=== PATIENT | male | born 1960 | race Caucasian/White ===

== ENCOUNTER 2016-10-25 20:27 | Inpatient (IN) | payer OTHER ==
[2016-10-25 21:02] LABS: URINE SOURCE CLEAN CATCH
[2016-10-25 21:22] LABS: BILIRUBIN URINE NEGATIVE (NEGATIVE); BLOOD URINE 4+ (NEGATIVE); CLARITY VERY CLOUDY (CLEAR); COLOR AMBER; LEUKOCYTES URINE 2+ (NEGATIVE); NITRITE URINE POSITIVE (NEGATIVE); PROTEIN URINE 2+(100 mg/dL) mg/dL (NEGATIVE); UROBILINOGEN URINE 4+(12 mg/dL)
[2016-10-25 21:23] LABS: URINE CAST NONE SEEN /LPF; URINE CRYSTAL NONE SEEN /HPF; URINE CULTURE PL NEEDED? YES; URINE EPITHELIAL CELLS <10 /HPF (<10); URINE RBC TNTC /HPF (<10); URINE WBC TNTC /HPF (<10)
[2016-10-25] MEDS ORDERED: NS 1,000 ML IV ONE (21:53)
[2016-10-25] MEDS ORDERED: ROCEPHIN 1 GM/NS 50 ML IV ONE (21:53)
[2016-10-25] MEDS ORDERED: TYLENOL PO ONE (21:53)
[2016-10-25] MEDS ORDERED: MORPHINE IV ONE (22:07)
--- NOTE | 2016-10-25 22:17 | PROVIDER DOCUMENTATION ---
HPI-Male Problem - General Chief Complaint: Flank Pain Stated Complaint: MALE Time Seen by Provider: 10/25/16 21:52 Source: patient Allergies/Adverse Reactions: Patient Allergies Allergy/AdvReac Type Severity Reaction Status Date / Time No Known Allergies Allergy Verified 07/09/16 16:43 Home Medications: Home Medication List Medication Instructions Recorded Confirmed Last Taken Type Clopidogrel Bisulfate [Clopidogrel] 75 mg PO DAILY 10/25/16 10/25/16 Unknown History Glimepiride 4 mg PO QAM 10/25/16 10/25/16 Unknown History Losartan Potassium 100 mg PO DAILY 10/25/16 10/25/16 Unknown History Metformin HCl 1,000 mg PO BID 10/25/16 10/25/16 Unknown History Pregabalin [Lyrica] 50 mg PO HS 10/25/16 10/25/16 Unknown History - History of Present Illness-Male Nature of Presenting Problem: 56 Y/O F presents to ED with Flank Pain. Pt states that the pain began yesterday , he was loading up a car ramp. States pain began about 1-2 hrs after. Back pain with radiation to left side groin pain. Pt has N, Low grade fever, States urine is a darker color than before. Denies V/D, Dysuria, hematuria. Location of Complaint: reports: generalized flank Radiation: reports: groin Quality of Pain: reports: aching Severity in ED: reports: severe Onset/Duration: reports: 24 hours ago Timing: reports: still present Context/Activities at Onset: reports: none Urinary Symptoms: reports: no symptoms Associated Symptoms: reports: pain/swelling in testicle Associated Symptoms: reports: back/neck pain Review of Systems - Adult - REVIEW OF SYSTEMS - ADULT Constitutional: reports: fever. denies: chills Eyes: reports: no symptoms reported Ears, Nose, Mouth & Throat: reports: no symptoms reported Cardiovascular: reports: no symptoms reported Respiratory: reports: no symptoms reported Gastrointestinal: reports: nausea. denies: diarrhea, vomiting Genitourinary: reports: flank pain, other (testicular tenderness). denies: dysuria, discharge, frequency, hematuria, urinary retention, urgency Musculoskeletal: reports: back pain Integumentary: denies: hives, hair loss Neurological: denies: ataxia, headache/migraines Psychiatric: reports: no symptoms reported Endocrine: reports: no symptoms reported Hematologic/Lymphatic: reports: no symptoms reported Allergic/Immunologic: reports: no symptoms reported All Other Systems: Reviewed and Negative Past History - Adult - PAST MEDICAL HISTORY-ADULT Review of Records: reports: Old Records Reviewed, Nursing Assessment Review, Medications Reviewed, Social history reviewed & non-contributory. Major Childhood Illnesses: reports: denies history Cardiovascular: reports: HTN, OR Musculoskeletal: reports: chronic pain Endocrine/Immune: reports: Diabetes - PRIOR SURGERIES/PROCEDURES Surgical/Procedure History: reports: appendectomy, cardiac stent - IMMUNIZATION STATUS Childhood Immunizations: See Nurse Assessment Flu Vaccine: See Nurse Assessment - FAMILY HISTORY Family History: reviewed, not pertinent - SOCIAL HISTORY Smoking: cigarettes, greater than 1 pack/day Living Situation: family Physical Exam-General - PHYSICAL EXAM-ADULT Initial Vital Signs Reviewed: Yes - CONSTITUTIONAL General Appearance: appears well, alert, mild distress - EYES Eyes: PERRL/EOMI, pink conjunctivae, fundi clear, no AV nicking - HEAD, EARS, NOSE, MOUTH & THROAT HENMT: normocephalic/atraumatic, moist mucous membranes, normal ENT inspection, TMs normal, pharynx normal - NECK Neck: non-tender, full range of motion, supple, normal inspection - RESPIRATORY Respiratory: chest non-tender, lungs clear, normal breath sounds, no pleuratic chest pain, no respiratory distress - CARDIOVASCULAR Cardiovascular: normal peripheral pulses, regular rate, rhythm - GASTROINTESTINAL (ABDOMEN) Abdominal Exam: normal bowel sounds, non tender, soft - GENITOURINARY Male Genitalia: testicular tenderness (swollen moderately) - LYMPHATIC Lymphatic: no adenopathy - MUSCULOSKELETAL Back Exam: normal inspection, no CVA tenderness, no vertebral tenderness Extremity: normal range of motion, non-tender, normal gait - SKIN Integumentary: normal color, normal turgor, warm/dry - NEUROLOGIC 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 - PSYCHIATRIC Psych/Mental Status: normal mood/affect, normal thought content, normal thought process, oriented x 3 Progress - PLAN OF CARE/RESULTS Progress/Plan/Lab Results: Laboratory Tests 10/25/16 10/25/16 10/25/16 20:55 22:17 22:17 WBC 17.58 H RBC 4.67 L Hgb 13.4 L Hct 42.1 MCV 90.1 MCH 28.7 MCHC 31.8 L RDW Std Deviation 14.6 H Plt Count 261 MPV 11.1 H Immature Gran % (Auto) 0.3 Neut % (Auto) 70.1 Lymph % (Auto) 18.9 L Jones % (Auto) 9.9 H Eos % (Auto) 0.4 Baso % (Auto) 0.4 Immature Gran # (Auto) 0.06 H Neut # (Auto) 12.31 H Lymph # (Auto) 3.33 Jones # (Auto) 1.74 H Eos # (Auto) 0.07 Baso # (Auto) 0.07 Sodium 131 L Potassium 4.2 Chloride 95 L Carbon Dioxide 25 Anion Gap 11 BUN 9 Creatinine 0.9 Estimated GFR/1.73 m2 > 60 BUN/Creatinine Ratio 10 Glucose 249 H Calculated Osmolality 270 Calcium 9.4 Total Bilirubin 1.80 H AST 27 ALT 33 Alkaline Phosphatase 115 Total Protein 8.2 Albumin 4.1 Globulin 4.0 Albumin/Globulin Ratio 1.0 Urine Source CLEAN CATCH Urine Color GIANNA Urine Clarity VERY CLOUDY A Urine pH 5.0 Ur Specific Raymond 1.020 Urine Protein 2+(100 mg/dL) A Urine Ketones TRACE Urine Blood 4+ Urine Nitrite POSITIVE A Urine Bilirubin NEGATIVE Urine Urobilinogen 4+(12 mg/dL) Urine Microscopic RBC TNTC A Urine WBC 2+ A Urine Microscopic WBC TNTC A Ur Epithelial Cells <10 Urine Crystals NONE SEEN Urine Bacteria 1+ Urine Casts NONE SEEN Urine Yeast NONE SEEN Urine Glucose 3+(500 mg/dL) A Orders Category Date Time Status RENAL STONE SEARCH [CT] Stat Exams 10/25/16 21:25 Taken US SCROTUM [US] Stat Exams 10/25/16 22:08 Taken BLOOD CULTURE [BLDCUL] Stat Lab 10/25/16 22:07 Ordered CBC WITH ELECTRONIC DIFF [HEME] Stat Lab 10/25/16 22:17 Completed CMP [COMPREHENSIVE METABOLIC PANEL] [CHEM] Stat Lab 10/25/16 22:[address] W/POSS RFLX CULT [URINALYSIS] Stat Lab 10/25/16 20:55 Completed URINE CULTURE [RM] Routine Lab 10/25/16 21:24 Received 0.9% Sodium Chloride Inj [Ns] 1,000 ml Med 10/25/16 21:53 Discontinued IV 999 mls/hr Acetaminophen [Tylenol] Med 10/25/16 21:53 Discontinued 1,000 mg PO NOW ONE CefTRIAXONE 1 GM/NS [Rocephin 1 gm/Ns] 50 ml Med 10/25/16 21:53 Discontinued IV NOW Diphenhydramine [Benadryl] Med 10/25/16 22:41 Discontinued 25 mg IV NOW ONE Morphine Med 10/25/16 22:07 Discontinued 4 mg IV NOW ONE Vital Signs - 24 hr 10/25/16 20:47 Temperature 100.5 F H Pulse Rate 115 H Respiratory 18 Rate Blood Pressure 144/80 O2 Sat by Pulse 94 L Oximetry - CT/MRI 1 CT Study: Renal Stone Impression: Abnormal (no stones, modeerate L renal and ureteral edema suggesting recently passed stone or ascending UTI. severe fatty liver, urinary bladder cystitis or chronic bladder hypertension.) CT Results: see notes - ULTRASOUND (By Radiology) 1 US Study: Scrotum Impression: Abnormal (Normal bilateral color doppler flow in both testes. Small bilateral hydrocelex, greater on the left. Asmmetrically enlarged, heterogeneous and hyperemic left epididymis. The right epididimysis appears grossly normal.) - CONSULTS/PCP/HOSPITALIST Notification #1 *Consult/PCP/Hospitalist*: Dr. Neves Time Discussed: 00:25 Reason/Comments: Admit Consult Disposition: Admit (Admit Accepted) Departure - Departure Time of Disposition Order: 00:25 DIAGNOSIS: Left epididymitis, Pyelonephritis Disposition: ADMITTED INPATIENT 09 Certified Medical Emergency: Emergent Condition: Stable Referrals: None,PCP [Primary Care Provider] - Attestation - Scribe Verification/Attestation Scribe:: Gayatri Galindo Acting as Scribe for:: Edd Curtis Scribe documention review:: This chart was documented by a scribe and accurately reflects the service the provider performed and the decisions made by the provider.
[2016-10-25 22:27] LABS: MANUAL DIFF NEEDED? NO
[2016-10-25 22:29] LABS: BASO% 0.4 % (0.0-0.8); EOS# 0.07 X1000 (0.0-0.7); EOS% 0.4 % (0.0-10.0); HEMATOCRIT 42.1 % (42.0-52.0); HEMOGLOBIN 13.4 g/dL (14.0-18.0); IMM GRAN# 0.06 X1000 (0.0-0.04); IMM GRAN% 0.3 % (0.0-0.5); LYMPH# 3.33 X1000 (1.2-3.4); LYMPH% 18.9 % (20.5-51.1); MCH 28.7 PG (27-31); MCHC 31.8 g/dL (33-37); MCV 90.1 FL (81-99); MONO# 1.74 X1000 (0.11-0.59); MONO% 9.9 % (1.7-9.3); MPV 11.1 FL (7.4-10.4); NEUT% 70.1 % (42.2-75.2); PLT 261 X1000 (130-400); RBC 4.67 XMIL (4.7-6.1)
[2016-10-25] MEDS ORDERED: BENADRYL IV ONE (22:41)
[2016-10-25 22:55] LABS: AGAP 11; ALBUMIN 4.1 g/dL (3.5-5.0); ALKALINE PHOSPHATASE 115 U/L (32-122); BUN 9 mg/dL (8-22); CALCIUM 9.4 mg/dL (8.8-10.2); CHLORIDE 95 mmol/L (98-107); COSMO 270; GOT 27 U/L (10-34); GPT 33 U/L (10-44); POTASSIUM 4.2 mmol/L (3.5-5.1); SODIUM 131 mmol/L (136-145); TCO2 25 mmol/L (25-35); TOTAL PROTEIN 8.2 g/dL (6.3-8.3)
[2016-10-26] MEDS ORDERED: ZOFRAN IV PRN (00:29)
[2016-10-26] MEDS: NS 1,000 ML IV SCH ×3 (00:30→22:49)
[2016-10-26] MEDS ORDERED: TYLENOL PO PRN (00:32)
[2016-10-26] MEDS: MORPHINE IV PRN ×3 (00:44→14:38)
[2016-10-26 04:45] LABS: MANUAL DIFF NEEDED? NO
[2016-10-26 04:51] LABS: BASO% 0.5 % (0.0-0.8); EOS# 0.12 X1000 (0.0-0.7); EOS% 0.9 % (0.0-10.0); HEMATOCRIT 39.2 % (42.0-52.0); HEMOGLOBIN 12.3 g/dL (14.0-18.0); IMM GRAN# 0.04 X1000 (0.0-0.04); IMM GRAN% 0.3 % (0.0-0.5); LYMPH# 3.15 X1000 (1.2-3.4); LYMPH% 23.1 % (20.5-51.1); MCHC 31.4 g/dL (33-37); MCV 92.5 FL (81-99); MONO# 1.64 X1000 (0.11-0.59); MPV 10.5 FL (7.4-10.4); NEUT% 63.2 % (42.2-75.2); PLT 210 X1000 (130-400); RBC 4.24 XMIL (4.7-6.1)
[2016-10-26 05:16] LABS: AGAP 10; ALBUMIN 3.1 g/dL (3.5-5.0); ALKALINE PHOSPHATASE 93 U/L (32-122); BUN 8 mg/dL (8-22); CALCIUM 8.5 mg/dL (8.8-10.2); CHLORIDE 98 mmol/L (98-107); COSMO 267; GOT 17 U/L (10-34); GPT 25 U/L (10-44); POTASSIUM 3.7 mmol/L (3.5-5.1); SODIUM 133 mmol/L (136-145); TCO2 25 mmol/L (25-35); TOTAL PROTEIN 6.8 g/dL (6.3-8.3)
[2016-10-26] MEDS ORDERED: MORPHINE ONE (05:47)
[2016-10-26] MEDS ORDERED: METFORMIN HCL 1000 MG PO SCH (09:00)
[2016-10-26] MEDS ORDERED: AMARYL PO SCH ×2 (09:00)
[2016-10-26] MEDS ORDERED: PLAVIX PO SCH (09:00)
[2016-10-26] MEDS ORDERED: LOSARTAN POTASSIUM 100 MG PO SCH (09:00)
--- NOTE | 2016-10-26 09:35 | Diag Imaging Result Document ---
PROCEDURE NAME: RENAL STONE SEARCH - 10/25/2016 CT RENAL STONE SEARCH WITHOUT CONTRAST: A dose-reduction protocol was used. COMPARISON: 07/10/2016. FINDINGS: There is residual or recurrent mild perinephric and periureteral edema on the left. There is no other substantial hydronephrosis identified. The left edema may relate to residual or recurrent left pyelonephritis. A recently passed stone from the left is also a consideration. There is no renal stone identified. There is apparent mild perinephric scarring on the right. There is no right hydronephrosis. There is some generalized thickening of the urinary bladder bernal which appears [id number] decreased compared to the previous exam. There are no substantial inflammatory changes identified around the urinary bladder. There is no evidence of bowel obstruction. There is uncomplicated colonic diverticulosis. There is no free air. There is hepatomegaly with fatty infiltration of the liver. The gallbladder is surgically absent. There is mild retroperitoneal adenopathy which has decreased mildly compared to the previous exam. IMPRESSION: 1. Mild residual or recurrent perinephric and periureteral edema on the left. No substantial hydronephrosis, otherwise. No renal stone identified. The left edema may relate to residual or recurrent left pyelonephritis. Recently passed stone on the left is also a consideration. Correlation with clinical evaluation is recommended. 2. Generalized thickening of the urinary bladder bernal which appears stable to mildly decreased compared to the previous exam. This may relate to cystitis or to chronic urinary bladder hypertension. 3. Uncomplicated colonic diverticulosis. 4. Hepatomegaly with fatty infiltration of the liver. Mild retroperitoneal adenopathy which has decreased mildly. The on-call radiologist provided preliminary results at 9:50 p.m. on 10/25/2016. [facility] MED[facility] CENTERPortia
--- NOTE | 2016-10-26 09:37 | Diag Imaging Result Document ---
PROCEDURE NAME: US SCROTUM - 10/25/2016 ULTRASOUND SCROTUM: COMPARISON: No comparison exam. FINDINGS: The right testicle measures 4.4 x 3.4 x 2.1 cm in size. The left testicle measures 3.9 x 3.5 x 2.6 cm in size. The bilateral testicles demonstrate homogeneous echotexture. The bilateral testicles demonstrate normal-appearing blood flow signal on Doppler images. The right epididymis is unremarkable. The left epididymis is enlarged, has heterogeneous echotexture, and demonstrates mildly prominent blood flow signal on Doppler images. These findings are suspicious for left epididymitis. There is a small hydrocele on the right. There is a small to medium hydrocele on the left. IMPRESSION: 1. Left epididymitis. 2. Small right hydrocele. Small to medium left hydrocele. 3. No evidence of torsion. A [facility] physician provided preliminary results at 12:15 a.m. on 10/26/2016.
[2016-10-26] MEDS: GLUCOPHAGE PO SCH ×2 (11:21→17:57)
[2016-10-26] MEDS: PLAVIX PO SCH (11:22)
[2016-10-26] MEDS: AMARYL PO SCH (11:22)
[2016-10-26] MEDS: COZAAR PO SCH (11:22)
--- NOTE | 2016-10-26 14:27 | HISTORY AND PHYSICAL ---
CHIEF COMPLAINT: Of left flank pain that began 1-2 hours prior to arrival yesterday. HISTORY OF PRESENTING ILLNESS: This is a 56-year-old male who presented to [facility] ER with complaints of left flank pain that radiated to his left groin with nausea and a low-grade fever subjectively. States that this all began yesterday approximately 1-2 hours prior to arrival. Workup in the ER on arrival showed a temperature of 100.5 degrees, heart rate 115. White blood cell count showed 17.58. Sodium was 131, total bilirubin was 1.80. Urinalysis showed positive nitrites, 2+ white blood cells, 1+ bacteria. Renal CT obtained showed mild residue or recurrent perinephric and periureteral edema on the left. No renal stones identified but the left edema may be related to residual or recurrent left pyelonephritis and a recently passed stone on the left is also a consideration. We did a scrotum a x -ray on the left that showed a left epididymitis and a small right hydrocele, small to medium left hydrocele. No evidence of torsion. So he will be admitted for further evaluation and treatment. PAST MEDICAL HISTORY: PA, hypertension, chronic pain, diabetes, type 2. PAST SURGICAL HISTORY: Appendectomy and a heart stent placement. FAMILY HISTORY: Noncontributory. SOCIAL HISTORY: Currently lives with family. Smokes 1 pack of cigarettes a day. Denied any alcohol or illicit drug use. ALLERGIES: He has no known drug allergies. HOME MEDICATIONS: He takes Plavix 75 mg p.o. daily, Lyrica 50 mg p.o. at bedtime, he takes glimepiride 4 mg p.o. q.a.m., losartan 100 mg p.o. daily and metformin 1000 mg p.o. b.i.d. LABORATORY DATA: Showed a white blood cell count of 17.58, hemoglobin 13.4, hematocrit 42.1, platelets are 226,000. This a.m. white blood cell count is down to 13.64, sodium of 131, potassium 4.2, chloride 95, CO2 25, BUN of 9, creatinine 0.9, glucose 249, total bilirubin 1.80, this morning his total bilirubin is down to 1.30. Urinalysis showed positive nitrites, 2+ white blood cells, 1+ bacteria. CT renal showed mild residual or recurrent perinephric and periureteral edema on the left. No substantial hydronephrosis and no renal cell identified. The left edema may relate to residual or recurrent left pyelonephritis, recently passed stone on the left is also a consideration, generalized thickening of the urinary bladder wall which appears to be stable to mildly decreased compared to previous exam, this may be related to cystitis or chronic urinary bladder hypertension, uncomplicated colonic diverticulosis. Scrotal x-ray showed left epididymitis, small right hydrocele, small to medium left hydrocele and no evidence of torsion. REVIEW OF SYSTEMS: He was positive for a subjective fever, left flank pain radiating into the left groin, nausea. Denied any chest pain, coughing, shortness of breath constipation, diarrhea or burning or hurting with urination. PHYSICAL EXAMINATION: Temperature on arrival 100.5, pulse 115, respirations 18, blood pressure 144/80 , saturating 94% on room air. Currently he has a temperature of 98.4 degrees. GENERAL: This is a 56-year-old male who is lying in the bed and answers questions appropriately. HEENT: Normocephalic and atraumatic. Pupils are equal, round, reactive to light. Extraocular movements are intact. Oropharynx and nares are clear. NECK: Supple. LUNGS: Clear to auscultation bilaterally with equal lung expansion and chest wall movement. HEART: With regular rate and rhythm. No murmurs, rubs, or gallops. ABDOMEN: Soft, nontender, nondistended. Patient does have a left CVA tenderness with pain in his left groin also to palpation. Bowel sounds are present x4 quadrants. EXTREMITIES: No clubbing, cyanosis, or edema. NEUROLOGICAL: The cranial nerves 2-12 are grossly intact. ASSESSMENT: 1. An acute pyelonephritis. 2. A left epididymitis. 3. Leukocytosis. 4. Diabetes type 2. 5. Hypertension. 6. Tobacco abuse. PLAN: He will be admitted to the medical unit at [facility]. Placed on a diabetic diet. We are obtaining a urine culture that at this time is showing some gram- negative rods. Will continue normal saline at 125 mL an hour, morphine 4 mg IV q.2 hours p.r.n. , Zofran 4 mg IV q.4 hours p.r.n. Will continue his home medications and will recheck CBC and CMP in the a.m. Dictated by NARGIS Morgan for Zhang Neves MD may have urethral stricture, will get gu to review his scans and follow [facility] MTDD
[2016-10-26] MEDS: DILAUDID IV PRN (20:40)
[2016-10-26] MEDS ORDERED: LYRICA PO SCH ×2 (21:00)
[2016-10-26] MEDS: HUMULIN R (PARKWAY) SUBQ SCH (22:58)
[2016-10-27] MEDS: DILAUDID IV PRN ×4 (06:17→21:18)
[2016-10-27 06:22] LABS: MANUAL DIFF NEEDED? NO
[2016-10-27 06:27] LABS: BASO% 1.7 % (0.0-0.8); EOS# 0.08 X1000 (0.0-0.7); EOS% 0.7 % (0.0-10.0); HEMOGLOBIN 12.8 g/dL (14.0-18.0); IMM GRAN# 0.04 X1000 (0.0-0.04); IMM GRAN% 0.3 % (0.0-0.5); LYMPH% 15.5 % (20.5-51.1); MCH 29.3 PG (27-31); MCHC 31.2 g/dL (33-37); MCV 93.8 FL (81-99); MONO# 1.18 X1000 (0.11-0.59); MONO% 9.6 % (1.7-9.3); MPV 11.6 FL (7.4-10.4); NEUT% 72.2 % (42.2-75.2); PLT 169 X1000 (130-400); RBC 4.37 XMIL (4.7-6.1)
[2016-10-27 06:52] LABS: AGAP 13; ALKALINE PHOSPHATASE 72 U/L (32-122); BUN 6 mg/dL (8-22); CALCIUM 8.6 mg/dL (8.8-10.2); CHLORIDE 99 mmol/L (98-107); COSMO 264; GOT 26 U/L (10-34); GPT 19 U/L (10-44); POTASSIUM 4.1 mmol/L (3.5-5.1); SODIUM 132 mmol/L (136-145); TCO2 20 mmol/L (25-35)
[2016-10-27] MEDS: NS 1,000 ML IV SCH ×4 (07:19→21:17)
[2016-10-27] MEDS: HUMULIN R (PARKWAY) SUBQ SCH ×3 (07:27→17:37)
[2016-10-27] MEDS: PLAVIX PO SCH (09:32)
[2016-10-27] MEDS: GLUCOPHAGE PO SCH ×2 (09:32→17:41)
[2016-10-27] MEDS: AMARYL PO SCH (09:32)
[2016-10-27] MEDS: COZAAR PO SCH (09:32)
[2016-10-27] MEDS ORDERED: DILAUDID IV PRN (15:36)
[2016-10-27] MEDS ORDERED: ZOFRAN IV PRN (20:22)
[2016-10-27] MEDS: TYLENOL PO PRN (21:19)
[2016-10-27] MEDS: HUMULIN R SUBQ SCH (21:19)
[2016-10-27] MEDS: LYRICA PO SCH (21:19)
[2016-10-28] MEDS: DILAUDID IV PRN ×6 (03:28→22:33)
[2016-10-28] MEDS: TYLENOL PO PRN ×2 (04:01→22:33)
[2016-10-28] MEDS: NS 1,000 ML IV SCH ×4 (05:33→22:35)
[2016-10-28 05:37] LABS: HEMATOCRIT 36.9 % (42.0-52.0); HEMOGLOBIN 11.7 g/dL (14.0-18.0); MCH 29.5 PG (27-31); MCHC 31.7 g/dL (33-37); MCV 92.9 FL (81-99); MPV 10.5 FL (7.4-10.4); RBC 3.97 XMIL (4.7-6.1)
[2016-10-28 06:04] LABS: AGAP 11; BUN 9 mg/dL (8-22); CALCIUM 8.9 mg/dL (8.8-10.2); CHLORIDE 102 mmol/L (98-107); COSMO 279; SODIUM 138 mmol/L (136-145); TCO2 25 mmol/L (25-35)
[2016-10-28] MEDS: HUMULIN R SUBQ SCH ×4 (06:52→22:35)
[2016-10-28] MEDS ORDERED: AMARYL PO SCH (08:00)
[2016-10-28] MEDS ORDERED: GLUCOPHAGE PO SCH (08:00)
[2016-10-28] MEDS: COZAAR PO SCH (10:51)
[2016-10-28] MEDS: PLAVIX PO SCH (10:52)
[2016-10-28] MEDS: LEVAQUIN 500 MG/D5W 100 ML IV SCH (10:58)
[2016-10-28] MEDS: FLOMAX PO SCH (14:35)
--- NOTE | 2016-10-28 15:57 | PROGRESS NOTE ---
DATE: 10/28/2016 SUBJECTIVE: Today Mr. Pena referred to be doing fine. He was in the room with his daughter and grandson at the time of the encounter. Continues to have some minimal left-sided scrotal discomfort. OBJECTIVE: Vital Signs: Stable. Blood pressure is 181/94, pulse of 81, respirations 16, temperature 98.4 degrees. Patient was saturating 98% on room air. General: Mr. Ballesteros is a 56- year-old male. He was in bed. No distress. HEENT: Mucosa is pink and moist. Anicteric. Acyanotic. Neck: Supple. Chest: Good air entry bilateral. There are no crepitations no rhonchi. Cardiovascular: Regular rate and rhythm. Abdomen: Soft, nontender. Slightly distended. Extremities: No pedal edema. SENIOR DENTIST: Patient was alert and oriented x4. There is no focal neurological deficit. : The scrotum, left testis is swollen and it is tender. The entire scrotum looks slightly swollen. LABORATORY DATA: WBC is down to 11.05, hemoglobin is 11.7, platelet count of 208,000. Sodium is 138, potassium 4.0, chloride is 102, bicarb is 25, glucose is 180. Urine culture is positive for E. coli which is sensitive to the quinolones. It is intermediately resistant to Zosyn and is resistant to cefazolin and ampicillin. A renal CT did show mild residual recurrent perinephric and periureteral edema. The left edema may relate to residual or recurrent left pyelonephritis. Hepatomegaly with fatty infiltration of the liver. ASSESSMENT: 1. Sepsis on presentation due to genitourinary infection. 2. Left pyelonephritis with urine culture positive for Escherichia coli. 3. Left epididymitis. I think the bug is the same Escherichia coli causing the pyelonephritis. Will continue with IV levofloxacin. Patient has been evaluated by urology. We are pending further recommendations. 4. Diabetes mellitus. For now, I will discontinue the p.o. medications in the face of the acute infection. I will use insulin to get better control of his glucose. Hopefully when he is ready to be discharged we might be able to put him back on his oral medications. I will go ahead and check on his A1c for tomorrow morning. 5. Hypertension is uncontrolled. Will start the patient on low-dose JOAQUIN inhibitor and titrate it up for better blood pressure control. 6. Dyslipidemia. 7. Fatty liver disease. 8. Tobacco abuse. GENERAL PLAN: Will be to continue levofloxacin and hydration. Pending final recommendations from urology, I think after 48 hours of IV antibiotics will probably be able to let the patient go home. MTDD
--- NOTE | 2016-10-28 16:54 | CONSULTATION ---
DATE OF CONSULTATION: 10/27/2016 ATTENDING AND REFERRING PHYSICIAN: Hospitalist. HISTORY OF PRESENT ILLNESS: This 56-year-old male with multiple medical problems was admitted with left flank and scrotal pain. His CT scan of the abdomen without contrast revealed mild left perinephric stranding but no stones or sign of obstruction. He was treated for left pyelonephritis approximately 3 months ago. The patient's ultrasound was consistent with left epididymoorchitis. His urine culture grew E. coli that was almost pansensitive and is sensitive to the Levaquin that he is on. The patient has poorly controlled diabetes. He states he is feeling better. PAST MEDICAL HISTORY: Hypertension, coronary artery disease status post OK, diabetes, chronic back pains, COPD, gastroesophageal reflux disease. CURRENT MEDICATIONS: Are documented on the chart. PAST SURGICAL HISTORY: Appendectomy, coronary artery stents placed x2 the last about 2 years ago, cystoscopic exam with dilation of meatal stenosis and direct visual internal urethrotomy of a proximal bulbar stricture in July 2016. He did not return for followup. Gastric biopsy that was consistent with ulcer. H. pylori was positive. SOCIAL HISTORY: Cigarettes, a pack a day for many years. He denies alcohol use. REVIEW OF SYSTEMS: No known drug allergies. He denies any problems with strokes, seizures, recent pulmonary or bowel problems. PHYSICAL EXAMINATION: General: An obese, age apparent, normally developed white male, oriented in all ways and cooperative. HEENT: Normal for age. Lungs: Clear. Cardiovascular: Regular rate and rhythm. Abdomen: Obese, soft, nontender. No hepatosplenomegaly or masses. Normal bowel sounds. : Uncircumcised male with penile shaft edema and edema of the scrotum. This is mild. The patient states it is much better. Right testis and epididymis palpably normal. Left testis and epididymis indurated but no areas of fluctuance consistent with left epididymoorchitis. The tenderness has almost resolved when the testis is palpated. No inguinal hernias. Rectal: Normal sphincter tone. Prostate about 40 g, smooth, and symmetric. Extremities: No C, C, or E. Neuro: No focal deficits. LABORATORY EVALUATION: His white count was 17.58 on admission on 25 October and today it was 11.05, hemoglobin 11.7, hematocrit 36.9, platelets are 208,000. His serum electrolytes are normal. BUN 9, creatinine 0.7. His blood sugar was 180. Urine culture again grew E. coli that was sensitive to the antibiotic that he is on. IMPRESSION: 1. Urinary tract infection with Escherichia coli. 2. Left epididymal orchitis. 3. Enlarged prostate with obstructive voiding. 4. History of meatal stenosis and urethral strictures with normal postvoid residual checks. RECOMMEND: 1. Continuing Levaquin. 2. Keep diabetes under better control. 3. Scrotal support to help with his scrotal discomfort. 4. Flomax 0.4 mg a day. He should go home with this medication. 5. Follow up in the Urology Clinic 1 week after discharge. Thank you for this consultation.
[2016-10-28] MEDS: LYRICA PO SCH (22:34)
[2016-10-28] MEDS: LANTUS SUBQ SCH (22:35)
[2016-10-29] MEDS: DILAUDID IV PRN ×4 (04:54→20:22)
[2016-10-29] MEDS: NS 1,000 ML IV SCH (04:57)
[2016-10-29 06:04] LABS: MANUAL DIFF NEEDED? NO
[2016-10-29 06:11] LABS: BASO% 0.5 % (0.0-0.8); EOS# 0.14 X1000 (0.0-0.7); EOS% 1.8 % (0.0-10.0); HEMATOCRIT 38.9 % (42.0-52.0); HEMOGLOBIN 12.4 g/dL (14.0-18.0); IMM GRAN# 0.03 X1000 (0.0-0.04); IMM GRAN% 0.4 % (0.0-0.5); LYMPH# 1.95 X1000 (1.2-3.4); LYMPH% 24.7 % (20.5-51.1); MCH 28.8 PG (27-31); MCHC 31.9 g/dL (33-37); MCV 90.5 FL (81-99); MONO# 0.72 X1000 (0.11-0.59); MONO% 9.1 % (1.7-9.3); MPV 10.3 FL (7.4-10.4); NEUT% 63.5 % (42.2-75.2); PLT 243 X1000 (130-400)
[2016-10-29 06:18] LABS: HEMOGLOBIN A1C 10.4 % (4.8-6.0)
[2016-10-29] MEDS ORDERED: INSULIN PEN NEEDLES ONE (06:25)
[2016-10-29 06:28] LABS: AGAP 13; BUN 9 mg/dL (8-22); CALCIUM 8.8 mg/dL (8.8-10.2); CHLORIDE 103 mmol/L (98-107); COSMO 282; POTASSIUM 4.1 mmol/L (3.5-5.1); SODIUM 140 mmol/L (136-145); TCO2 24 mmol/L (25-35)
[2016-10-29] MEDS: COZAAR PO SCH (08:08)
[2016-10-29] MEDS: PLAVIX PO SCH (08:08)
[2016-10-29] MEDS: FLOMAX PO SCH (08:08)
[2016-10-29] MEDS: LEVAQUIN 500 MG/D5W 100 ML IV SCH (08:08)
[2016-10-29] MEDS: HUMULIN R SUBQ SCH ×4 (09:16→21:55)
[2016-10-29] MEDS: PERCOCET-5 PO PRN (12:17)
[2016-10-29] MEDS: AMARYL PO SCH (13:13)
[2016-10-29] MEDS: GLUCOPHAGE PO SCH (18:06)
[2016-10-29] MEDS ORDERED: LOVENOX SUBQ SCH (18:45)
[2016-10-29] MEDS: LANTUS SUBQ SCH (21:54)
[2016-10-29] MEDS: LYRICA PO SCH (21:54)
--- NOTE | 2016-10-29 22:27 | PROGRESS NOTE ---
DATE: 10/29/2016 SUBJECTIVE: The patient complains of scrotal pain. OBJECTIVE: Vital Signs: Temperature 98.6 degrees, blood pressure 137/64, heart rate 91, respirations 18, O2 saturations 96% on room air. General: This is an elderly male, sitting up in bed, in no acute distress. Head: Normocephalic, atraumatic. Heart: S1, S2 normal. Regular rate and rhythm. Lungs: Clear to auscultation bilaterally. No wheezes, no rales, no rhonchi. Abdomen: Positive bowel sounds. Soft, nontender, nondistended. Extremities: No edema. No cyanosis. No calf tenderness. Neurologic: The patient is alert and oriented x3. LABS: White blood cell count 7.9, hemoglobin 12, hematocrit 38, platelets 243,000. Sodium 140, potassium 4.1, chloride 103, CO2 24, BUN 9, creatinine 0.6. ASSESSMENT AND PLAN: 1. Left pyelonephritis secondary to E. coli. Continue on IV Levaquin. 2. Left epididymitis. Continue on the current IV antibiotic regimen. The patient has been provided with scrotal support as directed by the urologist. 3. Benign prostatic hypertrophy. The patient has been started on Flomax by the urologist. 4. Hypertension. Controlled. Continue on Cozaar. 5. Diabetes mellitus type 2. Continue on Amaryl and metformin. 6. Deep vein thrombosis prophylaxis. We will start the patient on Lovenox. 7. Disposition. We will plan to discharge the patient in the next 24-48 hours.
[2016-10-30] MEDS: DILAUDID IV PRN
[2016-10-30] MEDS: PERCOCET-5 PO PRN ×3 (01:55→10:58)
[2016-10-30 05:46] LABS: MANUAL DIFF NEEDED? NO
[2016-10-30 05:55] LABS: BASO% 0.7 % (0.0-0.8); EOS# 0.24 X1000 (0.0-0.7); EOS% 2.8 % (0.0-10.0); HEMATOCRIT 37.5 % (42.0-52.0); HEMOGLOBIN 12.2 g/dL (14.0-18.0); IMM GRAN# 0.05 X1000 (0.0-0.04); IMM GRAN% 0.6 % (0.0-0.5); LYMPH# 2.83 X1000 (1.2-3.4); LYMPH% 32.9 % (20.5-51.1); MCH 29.3 PG (27-31); MCHC 32.5 g/dL (33-37); MCV 89.9 FL (81-99); MONO# 0.78 X1000 (0.11-0.59); MONO% 9.1 % (1.7-9.3); MPV 10.1 FL (7.4-10.4); NEUT% 53.9 % (42.2-75.2); PLT 251 X1000 (130-400); RBC 4.17 XMIL (4.7-6.1)
[2016-10-30 06:11] LABS: AGAP 12; BUN 8 mg/dL (8-22); CALCIUM 8.8 mg/dL (8.8-10.2); CHLORIDE 102 mmol/L (98-107); COSMO 277; POTASSIUM 3.8 mmol/L (3.5-5.1); SODIUM 139 mmol/L (136-145); TCO2 25 mmol/L (25-35)
[2016-10-30] MEDS: HUMULIN R SUBQ SCH (07:23)
[2016-10-30 08:04] VITALS: BP 155/89
[2016-10-30] MEDS: FLOMAX PO SCH (10:59)
[2016-10-30] MEDS: PLAVIX PO SCH (10:59)
[2016-10-30] MEDS: GLUCOPHAGE PO SCH (10:59)
[2016-10-30] MEDS: COZAAR PO SCH (10:59)
[2016-10-30] MEDS: AMARYL PO SCH (10:59)
[2016-10-30] MEDS: LEVAQUIN 500 MG/D5W 100 ML IV SCH (11:06)
--- NOTE | 2016-11-10 18:40 | DISCHARGE SUMMARY ---
ADMISSION DATE: 10/26/2016 DISCHARGE DATE: 10/30/2016 FINAL DISCHARGE DIAGNOSES: 1. Acute left epididymitis. 2. Left pyelonephritis secondary to Escherichia coli. 3. Benign prostatic hypertrophy. 4. Hypertension. 5. Diabetes mellitus type 2. CONSULTATIONS REQUESTED DURING THIS HOSPITAL STAY: Urology consultation with Dr. Choi. HOSPITAL COURSE: Mr. Gonzalez is a 56-year-old male with a history of BPH and diabetes who presented to the ER with left scrotal pain and swelling. A scrotal ultrasound was done that revealed left epididymitis. Also a renal CT was done on admission that revealed pyelonephritis. The patient was started on broad-spectrum antibiotics and Urology was consulted. It was recommended by the urologist that the patient be given scrotal support and he was also started on Flomax. With the initiation of antibiotic therapy and scrotal support the patient's scrotal pain improved. The urine culture grew out E coli. The patient continued to improve clinically and was ultimately cleared for discharge home. DISCHARGE MEDICATIONS: 1. Levaquin 750 p.o. daily for 8 days. 2. Percocet 7.5/325 one tab oral every 4 hours p.r.n. for pain. 3. Flomax 0.4 mg p.o. daily. 4. Plavix 75 mg p.o. daily. 5. Amaryl 4 mg p.o. at bedtime. 6. Metformin 1000 mg p.o. twice a day. 7. Losartan 100 mg p.o. daily. 8. Lyrica 50 mg p.o. at bedtime. DISCHARGE DIET: 1800 ADA diet. ACTIVITY: As tolerated. FOLLOWUP INSTRUCTIONS: The patient has been advised to follow up with Dr. Choi in 1 week.
== END 2016-10-30 11:31 | disposition home or self-care (01) | DRG 872 ==
LOC: P.ED 20:27 → P.EDIPHOLD 10-26 00:30 → P.MEDSURG 10-26 13:28 → 4N 10-27 20:15
PROVIDERS: ATTEND Internal Medicine
DX: A41.9 Sepsis, unspecified organism (principal); E11.65 Type 2 diabetes mellitus with hyperglycemia; K76.0 Fatty (change of) liver, not elsewhere classified; N10 Acute pyelonephritis; N13.8 Other obstructive and reflux uropathy; N45.3 Epididymo-orchitis; Z16.19 Resistance to other specified beta lactam antibiotics; Z16.11 Resistance to penicillins; B96.20 Unspecified Escherichia coli [E. coli] as the cause of diseases classified elsewhere; I10 Essential (primary) hypertension; N40.1 Benign prostatic hyperplasia with lower urinary tract symptoms; I25.10 Atherosclerotic heart disease of native coronary artery without angina pectoris; I25.2 Old myocardial infarction; N43.3 Hydrocele, unspecified; M54.89 Other dorsalgia; E66.9 Obesity, unspecified; E78.5 Hyperlipidemia, unspecified; G89.29 Other chronic pain; F17.210 Nicotine dependence, cigarettes, uncomplicated; J44.9 Chronic obstructive pulmonary disease, unspecified; Z95.5 Presence of coronary angioplasty implant and graft; Z87.442 Personal history of urinary calculi; Z79.899 Other long term (current) drug therapy; Z79.84 Long term (current) use of oral hypoglycemic drugs; Z79.02 Long term (current) use of antithrombotics/antiplatelets
CPT/HCPCS: 36415; 74176; 76870; 80048; 80053; 81001; 82948; 83036; 85025; 85027; 87040; 87077; 87088; 87186; 87491; 87591; 96361; 96365; 96375; 96376; J0696; J1170; J1200; J1650; J1815; J2270; J7030

== ENCOUNTER 2019-05-06 22:13 | Inpatient (IN) ==
[2019-05-06] MEDS ORDERED: DUONEB (A & A) INH ONE (22:25)
--- NOTE | 2019-05-06 22:30 | PROVIDER DOCUMENTATION ---
This chart was entered by Rosio Burch Scribe, acting as scribe for Tg Webb MD. HPI-Respiratory General - General Chief Complaint: Weakness Stated Complaint: SOB Time Seen by Provider: 05/06/19 22:16 Source: patient Allergies/Adverse Reactions: Patient Allergies Allergy/AdvReac Type Severity Reaction Status Date / Time No Known Allergies Allergy Verified 07/09/16 16:43 Home Medications: Home Medication List Medication Instructions Recorded Confirmed Last Taken Type Losartan Potassium 100 mg PO DAILY 10/25/16 05/07/19 Unknown History Metformin HCl 1,000 mg PO BID 10/25/16 05/07/19 Unknown History Pregabalin [Lyrica] 100 mg PO BID 10/25/16 05/07/19 Unknown History Albuterol Sulfate [Proair Hfa] 1 puff INH PRN PRN 05/07/19 05/07/19 Unknown History Amlodipine Besylate 10 mg PO DAILY 05/07/19 05/07/19 Unknown History Aspirin [Aspirin EC] 81 mg PO DAILY 05/07/19 05/07/19 Unknown History Escitalopram [Lexapro] 10 mg PO DAILY 05/07/19 05/07/19 Unknown History Lisinopril/Hydrochlorothiazide 1 tab PO DAILY 05/07/19 05/07/19 Unknown History [Lisinopril-Hctz 20-12.5 mg Tab] Metoprolol Succinate 25 mg PO DAILY 05/07/19 05/07/19 Unknown History Oxycodone HCl/Acetaminophen 1 tab PO BID 05/07/19 05/07/19 Unknown History [Percocet 10-325 mg Tablet] Ranolazine [Ranexa] 1,000 mg PO BID 05/07/19 05/07/19 Unknown History Varenicline Tartrate [Chantix] 1 mg PO BID 05/07/19 05/07/19 Unknown History - History of Present Illness-Resp Nature of Presenting Problem: 59 yom arrives via [facility] due to weakness, sob, dry cough, runny nose, sinus congestion starting yest and mild "pushing" left sided cp starting today. pt has hx of copd, uses all meds regularly. pt has hx 4 strents. pt smokes 1/2 ppd. denies sore throat, nvd and abd pain. pt sts had loc yest. pt had albuterol tx enroute. Quality of Pain: reports: other ("pushing" left sided cp.) Severity in ED: reports: mild Onset/Duration: reports: other (yest and today) Timing: reports: still present Cough Quality/Degree: reports: mild, dry cough Review of Systems - Adult - REVIEW OF SYSTEMS - ADULT Constitutional: reports: no symptoms reported. denies: chills, fever, night sweats Eyes: reports: no symptoms reported Ears, Nose, Mouth & Throat: reports: see HPI, sinus problem (congestion and runny nose). denies: ear discharge, ear pain, throat pain Cardiovascular: reports: see HPI, chest pain (mild left sided). denies: edema, orthopnea, palpitations Respiratory: reports: see HPI, cough, shortness of breath. denies: dyspnea on exertion, excessive sputum production, wheezing Gastrointestinal: reports: no symptoms reported. denies: abdominal pain, diarrhea, nausea, vomiting Genitourinary: reports: no symptoms reported Musculoskeletal: reports: see HPI, muscle weakness. denies: frequent leg cramps, joint pain, joint swelling Integumentary: reports: no symptoms reported Neurological: reports: see HPI, syncope (yest) Psychiatric: reports: no symptoms reported Endocrine: reports: no symptoms reported Hematologic/Lymphatic: reports: no symptoms reported Allergic/Immunologic: reports: no symptoms reported All Other Systems: Reviewed and Negative Past History - Adult - PAST MEDICAL HISTORY-ADULT Review of Records: reports: Old Records Reviewed, Nursing Assessment Review, Medications Reviewed, Social history reviewed & non-contributory. Major Childhood Illnesses: reports: denies history Cardiovascular: reports: HTN, [place] Respiratory: reports: COPD Gastrointestinal: reports: denies history Obstetrical/Gynecological: reports: denies history Genitourinary: reports: denies history Musculoskeletal: reports: chronic pain Neurological: reports: denies history Endocrine/Immune: reports: Diabetes Other Conditions: reports: denies history - PRIOR SURGERIES/PROCEDURES Surgical/Procedure History: reports: appendectomy, cardiac stent - IMMUNIZATION STATUS Childhood Immunizations: See Nurse Assessment Flu Vaccine: See Nurse Assessment - FAMILY HISTORY Family History: reviewed, not pertinent - SOCIAL HISTORY Smoking: cigarettes, less than 1 pack/day Provider spent 3-5 mins advising pt. on dangers of tobacco.: Discussed manners to quit use, and f/u contacts for add'l counseling. Substance Use: none/never Physical Exam-General - PHYSICAL EXAM-ADULT Initial Vital Signs Reviewed: Yes - CONSTITUTIONAL General Appearance: alert, no apparent distress, obese. negative: lethargic, slow to respond, obtunded - EYES Eyes: PERRL/EOMI, pink conjunctivae - HEAD, EARS, NOSE, MOUTH & THROAT HENMT: normocephalic/atraumatic, moist mucous membranes - NECK Neck: non-tender, full range of motion, supple, normal inspection - RESPIRATORY Respiratory: chest non-tender, lungs clear, normal breath sounds, no pleuratic chest pain, no respiratory distress, no accessory muscle use. negative: respiratory distress, decreased breath sounds, accessory muscle use - CARDIOVASCULAR Cardiovascular: normal peripheral pulses, regular rate, rhythm, no edema, no gallop, no JVD, no murmur. negative: JVD, bradycardia, tachycardia - CHEST (BREASTS) Chest/Breast: no masses/lumps, tenderness (mild left sided to palp). negative: no tenderness - GASTROINTESTINAL (ABDOMEN) Abdominal Exam: normal bowel sounds, non tender, soft - LYMPHATIC Lymphatic: no adenopathy - MUSCULOSKELETAL Back Exam: normal inspection, no CVA tenderness, no vertebral tenderness Extremity: normal range of motion, non-tender, normal inspection Peripheral Pulses: carotid (R): 2+ - SKIN Integumentary: normal color, normal turgor, warm/dry - NEUROLOGIC Neurologic: grossly normal, no motor/sensory deficits - PSYCHIATRIC Psych/Mental Status: normal mood/affect, normal thought content, normal thought process, oriented x 3 Progress - PLAN OF CARE/RESULTS Progress/Plan/Lab Results: Vital Signs - 8 hr 05/06/19 22:14 05/06/19 23:21 05/07/19 00:45 Temperature 98.5 F 98.6 F Pulse Rate 87 87 81 Respiratory Rate 21 21 24 Blood Pressure 102/62 102/58 O2 Sat by Pulse Oximetry 75 L 94 L 94 L Laboratory Results - last 24 hr 05/06/19 05/06/19 05/06/19 22:19 22:19 22:19 WBC 17.52 H RBC 4.20 L Hgb 13.1 L Hct 42.2 MCV 100.5 H MCH 31.2 H MCHC 31.0 L RDW Std Deviation 13.7 Plt Count 280 MPV 11.4 H Immature Gran % (Auto) 0.4 Neut % (Auto) 71.9 Lymph % (Auto) 17.9 L [place] % (Auto) 8.1 Eos % (Auto) 1.1 Baso % (Auto) 0.6 Immature Gran # (Auto) 0.07 H Neut # (Auto) 12.60 H Lymph # (Auto) 3.13 [place]ward # (Auto) 1.42 H Eos # (Auto) 0.20 Baso # (Auto) 0.10 Sodium 133 L Potassium 4.8 Chloride 96 L Carbon Dioxide 24 L Anion Gap 14 BUN 24 H Creatinine 2.6 H Estimated GFR/1.73 m2 25 BUN/Creatinine Ratio 9 Glucose 286 H Calculated Osmolality 281 Calcium 8.6 L Total Bilirubin 0.70 AST 113 H ALT 86 H Alkaline Phosphatase 110 [id number] Pept 473 H Total Protein 8.2 Albumin 4.3 Globulin 4.0 Albumin/Globulin Ratio 1.0 Plasma Lactate Urine Source Urine Color Urine Clarity Urine pH Ur Specific Freedom Urine Protein Urine Ketones Urine Blood Urine Nitrite Urine Bilirubin Urine Urobilinogen Urine Microscopic RBC Urine WBC Urine Microscopic WBC Ur Epithelial Cells Urine Bacteria Urine Glucose 05/06/19 05/06/19 23:21 23:47 WBC RBC Hgb Hct MCV MCH MCHC RDW Std Deviation Plt Count MPV Immature Gran % (Auto) Neut % (Auto) Lymph % (Auto) [place] % (Auto) Eos % (Auto) Baso % (Auto) Immature Gran # (Auto) Neut # (Auto) Lymph # (Auto) [place] # (Auto) Eos # (Auto) Baso # (Auto) Sodium Potassium Chloride Carbon Dioxide Anion Gap BUN Creatinine Estimated GFR/1.73 m2 BUN/Creatinine Ratio Glucose Calculated Osmolality Calcium Total Bilirubin AST ALT Alkaline Phosphatase [id number] Pept Total Protein Albumin Globulin Albumin/Globulin Ratio Plasma Lactate 2.5 H Urine Source CLEAN CATCH Urine Color GIANNA Urine Clarity SL. CLOUDY A Urine pH 6.5 Ur Specific Freedom 1.025 Urine Protein 2+(100 mg/dL) A Urine Ketones 1+(Small) A Urine Blood NEGATIVE Urine Nitrite POSITIVE A Urine Bilirubin 1+ A Urine Urobilinogen 1 Urine Microscopic RBC <10 Urine WBC 2+ A Urine Microscopic WBC 20-40 A Ur Epithelial Cells <10 Urine Bacteria 4+ Urine Glucose 2+(250 mg/dL) A Orders Category Date Time Status CHEST-1 VIEW [RAD] Stat Exams 08/28/19 22:[address] HEAD W/O CONTRAST [CT] Stat Exams 05/06/19 22:25 Taken KNEE 1-2 VIEWS-RIGHT [RAD] Stat Exams 05/06/19 22:25 Taken BLOOD CULTURE [BLDCUL] Stat Lab 05/06/19 23:39 Ordered CBC WITH ELECTRONIC DIFF [HEME] Stat Lab 05/06/19 22:19 Completed COMPREHENSIVE METABOLIC PANEL [CHEM] Stat Lab 05/06/19 22:19 Completed Cardiac Profile [CK PROFILE] [SP CHEM] Stat Lab 05/07/19 01:36 Received LACTATE, PLASMA [CHEM] Stat Lab 05/06/19 23:21 Completed LACTATE, PLASMA [CHEM] Stat Lab 05/07/19 01:38 Uncollected PRO B-NATRIURETIC PEPTIDE Stat Lab 05/06/19 22:19 Completed PROTIME WITH INR [COAG] Stat Lab 05/07/19 00:54 Received PTT [COAG] Stat Lab 05/07/19 00:54 Received TROPONIN T Stat Lab 05/07/19 01:36 Uncollected UA NIMS W/REFLEX CULT PL [URINALYSIS] Stat Lab 05/06/19 23:47 Completed URINE CULTURE [RM] Routine Lab 05/07/19 00:24 Ordered 0.9% Sodium Chloride Inj [Ns] 1,000 ml Med 05/06/19 23:30 Discontinued IV 999 mls/hr 0.9% Sodium Chloride Inj [Ns] 1,000 ml Med 05/07/19 00:56 Active IV 999 mls/hr Albuterol 2.5MG/Ipratrop 0.5MG [Duoneb (A & A)] Med 05/06/19 22:25 Discontinued 3 ml INH NOW ONE Azithromycin 500 mg/Ns [Zithromax 500 mg/Ns] Med 05/07/19 00:55 Active 500 mg in 250 ml IV NOW CefTRIAXONE [Rocephin] 1 gm Med 05/07/19 00:10 Discontinued 0.9% Sodium Chloride Inj [Ns] 50 ml IV NOW Dextrose 5%-0.45% NaCl Inj [D5 1/2 Ns] 250 ml Med 05/07/19 01:45 Active Norepinephrine [Levophed] 8 mg IV As Directed mls/hr Oxycodone/APAP 10 mg/325 mg [Percocet-10] Med 05/07/19 00:33 Discontinued 1 each PO NOW ONE Aerosol Treatments Routine Oth 05/06/19 22:26 Active Aerosol Treatments Stat Oth 05/06/19 22:26 Active Result Diagrams: 05/06/19 22:19 05/06/19 22:19 - REASSESSMENT Reassessment #1 Time Reassessed: 00:07 Status: other (elevated white count) Reassessment #2 Time Reassessed: 01:32 Status: unchanged (BP CONTINUES TO BE LOW AFTER 2L OF IVF's. WILL START LEVOPHED) - EKG 1 Time of EKG reading by physician:: 22:18 EKG Read and Signed by:: Tg Webb EKG Interpretation (*Must complete 3 of following elements*): Abnormal Rate: 85 Rhythm: NSR [place]: normal QRS: normal [place] Interval: normal ST Wave: normal - CT/MRI 1 CT Study: Head Impression: Normal, See EMR Report (Impression: Normal CT of the head.) Comparison with other Films: no prior study - CONSULTS/PCP/HOSPITALIST Notification #1 *Consult/PCP/Hospitalist*: DR TERENCE Fierro Discussed: 01:33 Consult Disposition: other ( THE PT NEEDS ICU BED, ADVISED TO CALL HOSPITALIST AT [facility]) #2 Consult: DR LIZETTE Fierro Discussed: 01:36 Consult Disposition: Admit (UNSURE IF ICU BEDS AVAILABLE, IF AVAILABLE WILL ACCEPT THE PT. ADVISED TO CALL THE [facility].), other (UNIT BED AVAILABLE. WILL PPUT IN ADMISSION AND TRANSFER ORDERS) Departure - Departure Date of Disposition Decision: 05/07/19 Time of Disposition Decision: 01:44 DIAGNOSIS: UTI (urinary tract infection), Hypotension, Sepsis Disposition: ADMITTED INPATIENT 09 Certified Medical Emergency: Emergent Condition: Stable Referrals and Follow-Ups: None,PCP [Primary Care Provider] - - Critical Care Note This patient required my direct & personal management of CC.: Yes Total Time (mins): 45 Critical Care Statement: This patient required my direct personal management to treat or rule out processes, the absence of which, could potentiallly result in sudden, clinically significant life or limb threatening deterioration. Attestation - Physician/ YG Attestation Patient care was provided by Advanced Practice Provider:: No The physician spent face to face time with patient:: Yes Advanced Practice Provider documentation review:: Supervising physician onsite and consulted in the evaluation and care of this patient. The physician did have a face to face encounter with the patient. This chart was documented by the indicated scribe, (Rosio Burch, [place]) and accurately reflects the services I performed and decisions made by me, Tg Webb MD, as attested by the provider's signature.
[2019-05-06 22:53] LABS: ALBUMIN 4.3 g/dL (3.5-5.0); CALCIUM 8.6 mg/dL (8.8-10.2); CREATININE 2.6 mg/dL (0.7-1.2); POTASSIUM 4.8 mmol/L (3.5-5.1); TOTAL BILIRUBIN 0.7 mg/dL (0.20-1.00); TOTAL PROTEIN 8.2 g/dL (6.3-8.3)
[2019-05-06 23:00] LABS: BASO% 0.6 % (0.0-0.8); EOS% 1.1 % (0.0-10.0); HEMATOCRIT 42.2 % (42.0-52.0); HEMOGLOBIN 13.1 g/dL (14.0-18.0); IMM GRAN# 0.07 X1000 (0.0-0.04); IMM GRAN% 0.4 % (0.0-0.5); LYMPH# 3.13 X1000 (1.2-3.4); LYMPH% 17.9 % (20.5-51.1); MCH 31.2 PG (27-31); MCV 100.5 FL (81-99); MONO# 1.42 X1000 (0.11-0.59); MONO% 8.1 % (1.7-9.3); MPV 11.4 FL (7.4-10.4); NEUT% 71.9 % (42.2-75.2); PLT 280 X1000 (130-400); RDW 13.7 % (11.5-14.5); WBC 17.52 X1000 (4.8-10.8)
[2019-05-06] MEDS ORDERED: NS 1,000 ML IV ONE (23:30)
[2019-05-07] MEDS ORDERED: ROCEPHIN 1 GM in NS 50 ML IV ONE (00:10)
[2019-05-07 00:22] LABS: BILIRUBIN URINE 1+ (NEGATIVE); BLOOD URINE NEGATIVE (NEGATIVE); KETONE URINE 1+(Small) mg/dL (NEGATIVE); LEUKOCYTES URINE 2+ (NEGATIVE); NITRITE URINE POSITIVE (NEGATIVE); PH URINE 6.5; PROTEIN URINE 2+(100 mg/dL) mg/dL (NEGATIVE); SP GRAVITY URINE 1.025; URINE SOURCE CLEAN CATCH; UROBILINOGEN URINE 1 mg/dL
[2019-05-07 00:23] LABS: CLARITY SL. CLOUDY (CLEAR); COLOR AMBER; URINE WBC 20-40 /HPF (<10)
[2019-05-07 00:24] LABS: URINE BACTERIA 4+ /HFP; URINE EPITHELIAL CELLS <10 /HPF (<10); URINE RBC <10 /HPF (<10)
[2019-05-07] MEDS ORDERED: PERCOCET-10 PO ONE (00:33)
[2019-05-07] MEDS ORDERED: ZITHROMAX 500 MG/NS 500 MG/250 ML IVPB IV ONE (00:55)
[2019-05-07] MEDS ORDERED: NS 1,000 ML IV ONE (00:56)
[2019-05-07] MEDS ORDERED: LEVOPHED 8 MG in D5 1/2 NS 250 ML IV SCH (01:45)
[2019-05-07 02:16] LABS: INR 0.97; PROTIME 13.4 Seconds (11.0-16.0)
[2019-05-07 02:17] LABS: PTT 30.3 Seconds (22.3-41.8)
[2019-05-07] MEDS ORDERED: TYLENOL PO PRN (04:22)
[2019-05-07] MEDS ORDERED: ZOFRAN IV PRN (04:22)
[2019-05-07] MEDS: LEVOPHED 8 MG in D5 1/2 NS 250 ML IV SCH ×2 (04:37→11:31)
--- NOTE | 2019-05-07 05:00 | HISTORY AND PHYSICAL ---
PRIMARY CARE PHYSICIAN: Dr. Franklin. CHIEF COMPLAINT: Shortness of breath, not feeling well. HISTORY OF PRESENTING ILLNESS: A 59-year-old male with a history of GA, hypertension, diabetes mellitus type 2, coronary disease, who presented to the emergency department initially at [facility], [place] due to having worsening shortness of breath. The patient was evaluated there, he was found to be hypotensive and possibly being septic from the UTI. Due to a lack of ICU beds there the patient was transferred to [facility] for further treatment. At the time of my examination the patient denied any nausea, vomiting, diarrhea, chest pain, hemoptysis or weight changes, but complained shortness of breath, possibly having a fever, not feeling well. PAST MEDICAL HISTORY: Includes GA, hypertension, diabetes mellitus type 2, coronary artery disease. PAST SURGICAL HISTORY: Coronary stent. ALLERGIES: No known drug allergies. CURRENT MEDICATIONS: Include albuterol inhaler q.6 hours, Norvasc 10 mg p.o. daily, aspirin 81 mg p.o. daily, Lexapro 10 mg p.o. daily, lisinopril HCTZ 20/12.5 one p.o. daily, losartan 100 mg p.o. daily, metformin 1000 mg p.o. b.i.d., metoprolol 25 mg p.o. daily, Percocet 10/325 1 p.o. b.i.d., Lyrica 100 mg p.o. b.i.d, Ranexa 1000 mg p.o. q.12 hours, Chantix 1 mg p.o. b.i.d. SOCIAL HISTORY: 40+ pack years history of smoking. Denies any history of alcohol or illicit drug use. FAMILY HISTORY: No history of coronary disease. REVIEW OF SYSTEMS: Fourteen point review of systems is as in the HPI. Other systems negative. PHYSICAL EXAMINATION: GENERAL: A cooperative friendly male. He is resting more comfortably now. VITAL SIGNS: Temperature 98.3 degrees, pulse 80, respirations 19, blood pressure 98/52. HEENT: Atraumatic, normocephalic. Extraocular movements intact. PERRLA. NECK: No masses. CHEST: Scattered wheezes. CARDIOVASCULAR: Regular rate and rhythm. ABDOMEN: Soft. Positive bowel sounds. EXTREMITIES: No edema. NEUROLOGIC: He is awake, alert, oriented x3. : No bladder distention. SKIN: Warm. LABORATORIES AND STUDIES: WBC is 17.52, hemoglobin 13.1, hematocrit 42.2, platelets 280,000. Sodium 133, potassium 4.8, chloride 96, CO2 is 24, BUN is 24, creatinine is 2.6, glucose is 286. Plasma lactate is 2.7. UA is nitrite positive, and +4 bacteria. ASSESSMENT: A 59-year-old male with a history of myocardial infarction, hypertension, chronic obstructive pulmonary disease, diabetes mellitus type 2, and coronary disease, who had presented to the emergency department with a 1-day history of having worsening shortness of breath. He was evaluated initially at [facility], [place] where he is found to be hypotensive and possibly septic, and due to lack of ICU beds there he was transferred to [facility] for further evaluation and management. 1. Chronic obstructive pulmonary disease exacerbation. 2. Probable sepsis. 3. Urinary tract infection. 4. Hypotension. 5. Acute kidney injury. 6. Diabetes mellitus type 2 with hyperglycemia. PLAN: 1. We will admit the patient to ICU. 2. Continue with DuoNebs p.r.n. 3. Check blood cultures, urine cultures, start the patient on empiric antibiotics. 4. The patient was started on Levophed and we will continue that to maintain blood pressure. 5. We will monitor his renal function closely. 6. Put the patient on a sliding scale insulin regimen and monitor blood glucose closely. 7. Put the patient on DVT prophylaxis with SCD and heparin. 8. We will continue to follow, reassess and make further recommendations based on the patient's clinical course. cc: Anil Salinas MD
[2019-05-07] MEDS: NS 1,000 ML IV SCH ×3 (05:16→19:57)
[2019-05-07] MEDS: ZOSYN 3.375 GM in NS 50 ML IV SCH ×3 (05:16→15:53)
[2019-05-07] MEDS: HEPARIN SUBQ SCH ×2 (05:16→15:53)
--- NOTE | 2019-05-07 05:49 | Diag Imaging Result Doc PS360 ---
EXAM: CT HEAD W/O CONTRAST HISTORY: FALL TECHNIQUE: CT head without contrast COMPARISON: None. FINDINGS: No parenchymal hemorrhage. No epidural or subdural hematoma. No subarachnoid hemorrhage. No mass identified on this noncontrasted exam. No hydrocephalus. No sinus opacification. IMPRESSION: No hemorrhage. Negative brain CT without contrast. A preliminary report was given at 11:25 PM on 05/06/2019 This exam was performed using automated exposure control, adjustment of mA or kV according to patient size, and/or use of iterative reconstruction technique. Electronically signed by Philip Keene 05/07/2019 5:47 AM
[2019-05-07] MEDS: HUMULIN R SUBQ SCH ×4 (06:25→20:06)
--- NOTE | 2019-05-07 07:19 | Diag Imaging Result Doc PS360 ---
EXAM: CHEST-1 VIEW 05/06/2019 HISTORY: DYSPNEA TECHNIQUE: Erect AP chest at 2308 COMMENT: There is minimal platelike opacity in the midlung gonzalez bilaterally. Otherwise considering differences in inspiration there has been no significant change since 07/09/2016. IMPRESSION: Minimal subsegmental atelectasis. Electronically signed by Stan Garcia 05/07/2019 7:16 AM
--- NOTE | 2019-05-07 07:20 | Diag Imaging Result Doc PS360 ---
EXAM: KNEE 1-2 VIEWS-RIGHT 05/06/2019 HISTORY: FALL TECHNIQUE: Right knee two views COMMENT: There is no evidence of fracture or dislocation. There is some patellofemoral arthropathy. IMPRESSION: Mild osteoarthritis. Electronically signed by Stan Garcia 05/07/2019 7:18 AM
--- NOTE | 2019-05-07 08:48 | EKG Report ---
Test Performed on : 05/06/2019 10:17:37 PM Test Reason : ER/PARKWAY Blood Pressure : / mmHG Vent. Rate : 085 BPM Atrial Rate : 085 BPM P-R Int : 154 ms QRS Dur : 096 ms QT Int : 396 ms P-R-T Axes : 042 040 064 degrees QTc Int : 471 ms Normal sinus rhythm. Normal ECG No previous ECGs available Unconfirmed Result
[2019-05-07] MEDS: ASPIRIN EC PO SCH (08:57)
[2019-05-07] MEDS: PERCOCET-10 PO SCH ×2 (08:57→20:24)
[2019-05-07] MEDS: LEXAPRO PO SCH (08:57)
[2019-05-07] MEDS: RANEXA PO SCH ×2 (08:58→20:24)
[2019-05-07 10:11] LABS: BASO# 0.08 X1000 (0.0-0.2); BASO% 0.5 % (0.0-0.8); EOS% 1.2 % (0.0-10.0); HEMATOCRIT 38.1 % (42.0-52.0); HEMOGLOBIN 12.2 g/dL (14.0-18.0); IMM GRAN# 0.21 X1000 (0.0-0.04); IMM GRAN% 1.3 % (0.0-0.5); LYMPH# 3.53 X1000 (1.2-3.4); LYMPH% 21.7 % (20.5-51.1); MCH 31.7 PG (27-31); MONO# 1.23 X1000 (0.11-0.59); MONO% 7.6 % (1.7-9.3); MPV 10.7 FL (7.4-10.4); NEUT% 67.7 % (42.2-75.2); PLT 237 X1000 (130-400); RBC 3.85 XMIL (4.7-6.1); RDW 13.5 % (11.5-14.5); WBC 16.25 X1000 (4.8-10.8)
--- NOTE | 2019-05-07 10:34 | Diag Imaging Result Doc PS360 ---
EXAM: CHEST-PORTABLE HISTORY: SOB TECHNIQUE: Chest single view COMPARISON: 05/06/2011 FINDINGS: The lungs are well expanded except for minimal atelectasis or scarring in the mid right lung. The heart is borderline mildly prominent. The vessels are not distended. There are no infiltrates. No effusion identified. IMPRESSION: Stable chest Electronically signed by Philip Keene 05/07/2019 10:32 AM
[2019-05-07 11:23] LABS: AGAP 16; ALB/GLOB RATIO 1.2; ALBUMIN 3.6 g/dL (3.5-5.0); ALKALINE PHOSPHATASE 86 U/L (32-122); BUN 25 mg/dL (8-22); CHLORIDE 105 mmol/L (98-107); COSMO 288; GLUCOSE 267 mg/dL (70-104); GOT 68 U/L (10-34); GPT 66 U/L (10-44); POTASSIUM 4.9 mmol/L (3.5-5.1); SODIUM 137 mmol/L (136-145); TCO2 16 mmol/L (25-35); TOTAL BILIRUBIN 0.73 mg/dL (0.20-1.00); TOTAL PROTEIN 6.7 g/dL (6.3-8.3)
--- NOTE | 2019-05-07 11:25 | PROGRESS NOTE ---
DATE: 05/07/2019 SUBJECTIVE: This patient is resting in bed. He is complaining of back pain. He is oriented to person and place, he is not oriented to time. He is not able to say his date of or the manager spring. He is following commands. I do not see any focal deficits. As per the family, he was really pale and disoriented at home, also having severe chills, so they decided to bring this patient to the hospital. He does have lab work that showed urinary tract infection, and CT scan of the head is negative. Given his history of urinary problems, I will get a new CT scan of the abdomen and pelvis without contrast. He is in actually septic shock. He is on vasopressors and antibiotics. His mouth is dry. He came in with acute kidney injury. Family members at the bedside. I explained to them the whole situation. OBJECTIVE: Vital signs: Temperature 99.5 degrees, pulse 72, respiratory rate 15, blood pressure 135/74, oxygen saturation 98% on 15 L of oxygen in a Venturi mask. HEENT: Head normocephalic, no trauma. PERRLA. Neck: Supple. No JVD. No masses. Central trachea. Chest: Clear to auscultation. Some crepitus at the bases. Abdomen: Soft, distended. Positive bowel sounds. Protuberant. Extremities: No edema, no clubbing, no cyanosis. A little bit cold feet. Neurological examination: This patient is sleepy, but arousable. He is following commands. He is able to recognize family members at the bedside. He remembers his name, location. He is not oriented to time. He does not remember his date of or the manager spring. LABORATORY: WBC 16.2, hemoglobin 12.2, hematocrit 38.1, and platelets 237 pending CMP. ASSESSMENT AND PLAN: 1. Septic shock. Continue with broad-spectrum antibiotics. Continue with intravenous fluids and vasopressors. Likely this is due to urinary tract infection. I will get a CT scan of the abdomen and pelvis to rule out an abscess and/or obstruction. 2. Urinary tract infection as above. 3. Acute kidney injury likely secondary to dehydration and/or obstruction. Continue with intravenous fluids pending CT scan without contrast. 4. Type 2 diabetes with hyperglycemia. For now, we will continue with sliding scale insulin and pattern blood sugar. 5. Hypoxemia. It looks like this patient probably has sleep apnea. Right now he is on a Venturi mask and the oxygen saturation has been above 90. X-ray did not show any pulmonary edema and/or infection so far. 6. Possible history of chronic obstructive pulmonary disease, not in exacerbation. CRITICAL CARE TIME: 40 minutes. cc: Rojas Mena MD
[2019-05-07] MEDS: DUONEB (A & A) INH PRN ×3 (11:48→19:41)
--- NOTE | 2019-05-07 12:37 | Diag Imaging Result Doc PS360 ---
EXAM: CT ABDOMEN/PELVIS W/O CONTRAST HISTORY: rule out kidney stones TECHNIQUE: CT abdomen and pelvis without contrast COMPARISON: 10/25/2016 FINDINGS: Mild increased interstitial markings in the lung bases. The gallbladder has been removed. There is fatty infiltration of the liver. Normal spleen, pancreas, and adrenal glands. There are multiple bilateral renal stones. No hydronephrosis. No ureteral stones. No aortic aneurysm. Mild to moderate atherosclerosis. There are small lymph nodes noted the yelena hepatis. No bowel obstruction. No inflammation about the cecum. No abscess. There are scattered colonic diverticula. There is a Wang catheter within the urinary bladder. Scoliosis with degenerative spine changes. IMPRESSION: 1.Bilateral renal stones, but no ureteral stones and no hydronephrosis 2.Cholelithiasis 3.There is fatty infiltration of the liver 4.Colonic diverticulosis This exam was performed using automated exposure control, adjustment of mA or kV according to patient size, and/or use of iterative reconstruction technique. Electronically signed by Philip Keene 05/07/2019 12:35 PM
--- NOTE | 2019-05-07 16:37 | ECHO REPORT ---
ORDER DATE: 05/07/2019 INTERPRETING PHYSICIAN: Andrea Birmingham MD PROCEDURE: 2D echocardiogram. ECHOCARDIOGRAPHIC MEASUREMENTS: 1. Interventricular septum 1.5 cm. 2. Left ventricular posterior wall 1.2 cm. 3. Diastolic diameter 4.8 cm. 4. Aorta 3.1 cm. 5. Left atrium 3.8. SUMMARY OF THE 2-DIMENSIONAL IMAGIN. Technically suboptimal study, poor acoustic window. 2. Pulmonic valve not well visualized. 3. Aortic valve leaflets are trileaflet. 4. Mitral valve was normal. 5. Tricuspid valve was normal. 6. There is mild tricuspid regurgitation. 7. Peak velocity across the tricuspid valve was less than 2 m/sec. 8. There is mild mitral regurgitation. 9. Peak velocity across the aortic valve less than 2 m/sec. 10. By Doppler studies, there is no aortic stenosis or regurgitation. 11. Optison was used to assess left ventricular systolic function. 12. Normal left ventricular cavity size. 13. Mild left ventricular hypertrophy. 14. Estimated ejection fraction of 65%. 15. There is no pericardial effusion or obvious intracardiac mass or thrombus seen. cc: MD Rojas Cruz MD
[2019-05-07] MEDS: DULCOLAX PR SCH (20:29)
[2019-05-08] MEDS: DUONEB (A & A) INH PRN (01:36)
[2019-05-08] MEDS: HEPARIN SUBQ SCH ×2 (03:55→16:27)
[2019-05-08] MEDS: ZOSYN 3.375 GM in NS 50 ML IV SCH ×4 (03:55→21:03)
[2019-05-08] MEDS: NS 1,000 ML IV SCH (03:55)
[2019-05-08 04:37] LABS: ALLEN TEST YES; BE -2.6 mmoll (-3.0-3.0); BLOOD TYPE ARTERIAL; HCO3-(ACT) 22.8 mmoll (20.0-26.0); METHB 1.9 % (0.0-1.5); MODALITY VENTIMASK; O2(CT) 15.1 mL/dL (15.0-23.0); O2HB 92.5 % (95.0-99.0); PCO2(98.6) 49 mmHg (35-45); PO2(98.6) 65 mmHg (60-100); SAMPLE BLOOD; SAO2 96.1 % (95.0-100.0); THB 11.6 g/dL (11.5-17.4)
[2019-05-08 05:00] LABS: HEMOGLOBIN A1C 9.3 % (4.8-6.0)
[2019-05-08 05:16] LABS: BASO# 0.03 X1000 (0.0-0.2); BASO% 0.4 % (0.0-0.8); EOS% 1.2 % (0.0-10.0); HEMATOCRIT 35.6 % (42.0-52.0); HEMOGLOBIN 11.5 g/dL (14.0-18.0); IMM GRAN# 0.04 X1000 (0.0-0.04); IMM GRAN% 0.5 % (0.0-0.5); LYMPH# 1.58 X1000 (1.2-3.4); LYMPH% 18.7 % (20.5-51.1); MCHC 32.3 g/dL (33-37); MCV 99.2 FL (81-99); MONO# 0.44 X1000 (0.11-0.59); MONO% 5.2 % (1.7-9.3); NEUT# 6.27 X1000 (1.4-6.5); PLT 168 X1000 (130-400); RBC 3.59 XMIL (4.7-6.1); RDW 13.4 % (11.5-14.5); WBC 8.46 X1000 (4.8-10.8)
[2019-05-08 05:20] LABS: AGAP 7; CHLORIDE 106 mmol/L (98-107); GLUCOSE 175 mg/dL (70-104); POTASSIUM 4.9 mmol/L (3.5-5.1); SODIUM 135 mmol/L (136-145); TCO2 22 mmol/L (25-35)
[2019-05-08 05:21] LABS: ALB/GLOB RATIO 1.1; ALBUMIN 3.3 g/dL (3.5-5.0); ALKALINE PHOSPHATASE 68 U/L (32-122); BUN 17 mg/dL (8-22); COSMO 276; CREATININE 1.2 mg/dL (0.7-1.2); ESTIMATED GFR > 60; GOT 40 U/L (10-34); GPT 48 U/L (10-44); MAGNESIUM 1.5 mg/dL (1.5-2.7); PHOSPHORUS 2.2 mg/dL (2.7-4.5); TOTAL BILIRUBIN 0.93 mg/dL (0.20-1.00); TOTAL PROTEIN 6.4 g/dL (6.3-8.3)
[2019-05-08] MEDS: HUMULIN R SUBQ SCH ×4 (06:36→21:02)
--- NOTE | 2019-05-08 06:45 | Diag Imaging Result Doc PS360 ---
CHEST-PORTABLE - 05/08/2019 INDICATION: dyspnea COMPARISON: 05/07/2019 FINDINGS: There is some mild linear atelectasis in the left upper lobe. The lungs are clear. Heart size is normal. No pneumothorax or pleural effusion. IMPRESSION: No acute process. Electronically signed by Deniz Brooks 05/08/2019 6:43 AM
--- NOTE | 2019-05-08 07:19 | PROGRESS NOTE ---
DATE: 05/08/2019 SUBJECTIVE: This patient is resting in bed. He is completely alert. He is oriented x3. He looks better compared with yesterday. Today, I will decrease the rate of the IV fluids and I will start this patient on a diet. Vasopressors were stopped yesterday night around 8 p.m. He is still on a Ventimask, 50% FiO2. He has been coughing up some creamy whitish phlegm, I will ask for a sputum culture and he is getting antibiotics, broad spectrum with Zosyn. Also I have requested physical therapy. OBJECTIVE: Vital Signs: Temperature 98.9 degrees, pulse 89, respiratory rate 21, blood pressure 114/67, oxygen saturation 94% on a Venturi mask, 15% oxygen flow. HEENT: Head normocephalic. No trauma. PERRLA. Neck: Supple. No JVD. No masses. Central trachea. Chest: Clear to auscultation. Crepitus at the bases. Abdomen: Soft, obese, protuberant, slightly distended. Positive bowel sounds. Extremities: No edema, no clubbing, no cyanosis. Neurological: This patient is awake. He is able to say his name, date of , location and time. He is oriented. He is following commands. LABORATORY DATA: WBC 8.4, hemoglobin 11.5, hematocrit 35.6, platelets 168,000. Sodium 135, potassium 4.9, chloride 106, bicarbonate 22, BUN 17, creatinine 1.2, glucose 175, calcium 8, phosphorus 2.2, AST 40, ALT 48, alkaline phosphatase 68, albumin 3.3, plasma lactate 0.7. ASSESSMENT AND PLAN: 1. Septic shock. This is much better. He is no longer on vasopressors. Continue with intravenous fluids but I will decrease the rate from 125 to 100, likely this is due to urinary tract infection. Urine culture is still negative as well as blood culture. CT scan of the abdomen and pelvis done yesterday showed bilateral renal stones but no ureteral stones and no hydronephrosis, cholelithiasis, fatty infiltration of the liver and colonic diverticulosis, but no evidence of diverticulitis. 2. Urinary tract infection, as above. We will continue with broad spectrum antibiotics. 3. Hypoxemia with possible bronchitis/pneumonia. I do not see any infiltrates in the x-rays, but he has been coughing up some creamy/whitish phlegm. I have requested a sputum culture. Continue broad-spectrum antibiotics. He is not wheezing. Continue with breathing treatment as needed. 4. Acute kidney injury likely secondary to dehydration. Continue with IV fluids, basically resolved. 5. Type 2 diabetes with hyperglycemia. This is better. Continue with the same management. 6. Hypoxemia with possible pneumonia, like I mentioned before. 7. Possible history of chronic obstructive pulmonary disease, not in exacerbation at this moment. 8. Likely this patient also has sleep apnea. 9. Obesity with a body mass index of 33.8 kg. Diet and exercise will be discussed. Critical care time 30 minutes. cc: Rojas Mena MD
[2019-05-08] MEDS: 1/2 NS 1,000 ML IV SCH ×2 (08:04→16:24)
[2019-05-08] MEDS: PERCOCET-10 PO SCH ×2 (08:35→21:02)
[2019-05-08] MEDS: LEXAPRO PO SCH (08:36)
[2019-05-08] MEDS: ASPIRIN EC PO SCH (08:36)
[2019-05-08] MEDS: RANEXA PO SCH ×2 (08:36→21:03)
[2019-05-08] MEDS: DUONEB (A & A) INH SCH ×3 (09:10→23:32)
[2019-05-08] MEDS: DULCOLAX PR SCH (21:33)
[2019-05-09] MEDS: HEPARIN SUBQ SCH ×3 (03:46→21:30)
[2019-05-09] MEDS: 1/2 NS 1,000 ML IV SCH ×2 (03:46→08:03)
[2019-05-09] MEDS: ZOSYN 3.375 GM in NS 50 ML IV SCH ×4 (03:46→21:28)
[2019-05-09 04:37] LABS: ALLEN TEST YES; BE 0.7 mmoll (-3.0-3.0); BLOOD TYPE ARTERIAL; HCO3-(ACT) 25.4 mmoll (20.0-26.0); METHB 0.4 % (0.0-1.5); O2(CT) 15.1 mL/dL (15.0-23.0); O2HB 94.2 % (95.0-99.0); PCO2(98.6) 47 mmHg (35-45); PO2(98.6) 64 mmHg (60-100); SAMPLE BLOOD; SAO2 98.5 % (95.0-100.0); THB 11.4 g/dL (11.5-17.4); pH(98.6) 7.36 (7.35-7.45)
[2019-05-09 04:38] LABS: MODALITY CANNULA
[2019-05-09 05:44] LABS: BASO# 0.05 X1000 (0.0-0.2); BASO% 0.6 % (0.0-0.8); EOS# 0.21 X1000 (0.0-0.7); EOS% 2.4 % (0.0-10.0); HEMATOCRIT 35.3 % (42.0-52.0); HEMOGLOBIN 11.3 g/dL (14.0-18.0); IMM GRAN# 0.04 X1000 (0.0-0.04); IMM GRAN% 0.4 % (0.0-0.5); LYMPH# 2.08 X1000 (1.2-3.4); LYMPH% 23.4 % (20.5-51.1); MCH 31.8 PG (27-31); MCV 99.4 FL (81-99); MONO# 0.76 X1000 (0.11-0.59); MONO% 8.5 % (1.7-9.3); MPV 11.3 FL (7.4-10.4); NEUT# 5.76 X1000 (1.4-6.5); NEUT% 64.7 % (42.2-75.2); PLT 157 X1000 (130-400); RBC 3.55 XMIL (4.7-6.1); RDW 13.2 % (11.5-14.5)
[2019-05-09] MEDS: HUMULIN R SUBQ SCH ×4 (06:12→21:30)
[2019-05-09 06:19] LABS: AGAP 11; ALB/GLOB RATIO 1.1; ALBUMIN 3.6 g/dL (3.5-5.0); ALKALINE PHOSPHATASE 71 U/L (32-122); BUN 11 mg/dL (8-22); CALCIUM 8.5 mg/dL (8.8-10.2); CHLORIDE 106 mmol/L (98-107); COSMO 284; CREATININE 0.7 mg/dL (0.7-1.2); ESTIMATED GFR > 60; GLUCOSE 155 mg/dL (70-104); GOT 34 U/L (10-34); GPT 41 U/L (10-44); MAGNESIUM 1.5 mg/dL (1.5-2.7); PHOSPHORUS 1.8 mg/dL (2.7-4.5); POTASSIUM 4.4 mmol/L (3.5-5.1); SODIUM 141 mmol/L (136-145); TCO2 24 mmol/L (25-35); TOTAL BILIRUBIN 1.18 mg/dL (0.20-1.00)
[2019-05-09] MEDS ORDERED: 1/2 NS 1,000 ML IV SCH (07:07)
--- NOTE | 2019-05-09 07:45 | PROGRESS NOTE ---
DATE: 05/09/2019 SUBJECTIVE: This patient is resting comfortably in bed. He is feeling much better. He is completely alert and oriented x3. He is weak and, with physical therapy, he gets hypoxemic. He uses oxygen at home, but mostly during the night around 2 L. OBJECTIVE: Vital Signs: Temperature 98.2 degrees, pulse 94, respiratory rate 20, blood pressure 154/80, oxygen saturation 93 on 6 L of nasal cannula. HEENT: Head normocephalic, no trauma. PERRLA. Neck: Supple. No JVD. No masses. Central trachea. Chest: Clear to auscultation. Decreased breath sounds mostly at the bases with some crepitus at the bases. Prolonged expiratory phase. No wheezing. Abdomen: Soft, obese, slightly protuberant, nondistended. Positive bowel sounds. Extremities: No edema, no clubbing, no cyanosis. Neurological examination: This patient is awake and he is following commands, oriented x3. LABORATORY: WBC 8.9, hemoglobin 11.3, hematocrit 35.3, platelets 157. Sodium 141, potassium 4.4, chloride 106, bicarbonate 24. BUN 11, creatinine 0.7 glucose 155, calcium 8.5, phosphorus 1.8. AST 34, ALT 41, alkaline phosphatase 7.1. ASSESSMENT AND PLAN: 1. Septic shock, due to urinary tract infection. He is no longer on vasopressors. Continue with intravenous fluids which I will decrease to 50 mL/hour, cultures so far negative. CT scan of the abdomen and pelvis done a couple days ago showed bilateral renal stone, but no lateral stones or hydronephrosis. It showed cholelithiasis, fatty liver infiltration and colonic diverticulosis. 2. Urinary tract infection. Continue with antibiotics, broad spectrum. 3. Chronic obstructive pulmonary disease on home oxygen, not in exacerbation. There is a possibility of underlying pneumonia. Continue broad-spectrum antibiotics. 4. Hypoxemic respiratory failure which is chronic. He is on home oxygen, but he uses 2 liters at home and now he is on 6 liters, better than previous days though. 5. Acute kidney injury secondary to dehydration, resolved. 6. Type 2 diabetes with hyperglycemia, better controlled. I have placed this patient back on his metformin. 7. Likely this patient has sleep apnea. 8. Obesity with a body mass index of 35.3, diet and exercise have been discussed. The patient seems to be doing much better. I will continue physical therapy because of his generalized weakness. Continue oxygen supplementation and antibiotics. He will be transferred to a step-down unit. cc: Rojas Mena MD
[2019-05-09] MEDS: ASPIRIN EC PO SCH (08:03)
[2019-05-09] MEDS: LYRICA PO SCH ×2 (08:04→21:29)
[2019-05-09] MEDS: LEXAPRO PO SCH (08:04)
[2019-05-09] MEDS: COZAAR PO SCH (08:04)
[2019-05-09] MEDS: GLUCOPHAGE PO SCH ×2 (08:04→21:29)
[2019-05-09] MEDS: NORVASC PO SCH (08:05)
[2019-05-09] MEDS: PERCOCET-10 PO SCH ×2 (08:10→21:29)
[2019-05-09] MEDS: RANEXA PO SCH ×2 (08:11→21:30)
[2019-05-09] MEDS: DUONEB (A & A) INH SCH ×5 (09:22→23:46)
[2019-05-09] MEDS: DULCOLAX PR SCH (21:28)
[2019-05-10] MEDS: DUONEB (A & A) INH SCH ×3 (03:28→11:24)
[2019-05-10] MEDS: HEPARIN SUBQ SCH (03:58)
[2019-05-10] MEDS: ZOSYN 3.375 GM in NS 50 ML IV SCH (03:59)
[2019-05-10] MEDS: 1/2 NS 1,000 ML IV SCH (03:59)
[2019-05-10] MEDS: HUMULIN R SUBQ SCH ×2 (06:13→11:50)
[2019-05-10 07:22] LABS: BASO% 0.5 % (0.0-0.8); EOS% 3.2 % (0.0-10.0); HEMATOCRIT 35.9 % (42.0-52.0); HEMOGLOBIN 11.4 g/dL (14.0-18.0); IMM GRAN% 0.5 % (0.0-0.5); LYMPH# 2.04 X1000 (1.2-3.4); LYMPH% 26.9 % (20.5-51.1); MCH 31.6 PG (27-31); MCHC 31.8 g/dL (33-37); MCV 99.4 FL (81-99); MONO% 8.3 % (1.7-9.3); MPV 10.9 FL (7.4-10.4); NEUT% 60.6 % (42.2-75.2); PLT 173 X1000 (130-400); RBC 3.61 XMIL (4.7-6.1); RDW 13.2 % (11.5-14.5); WBC 7.59 X1000 (4.8-10.8)
[2019-05-10 07:23] LABS: BASO# 0.04 X1000 (0.0-0.2); EOS# 0.24 X1000 (0.0-0.7); IMM GRAN# 0.04 X1000 (0.0-0.04); MONO# 0.63 X1000 (0.11-0.59)
[2019-05-10 07:58] LABS: AGAP 12; BUN 10 mg/dL (8-22); CALCIUM 8.7 mg/dL (8.8-10.2); CHLORIDE 107 mmol/L (98-107); COSMO 287; CREATININE 0.7 mg/dL (0.7-1.2); ESTIMATED GFR > 60; GLUCOSE 157 mg/dL (70-104); POTASSIUM 3.9 mmol/L (3.5-5.1); SODIUM 143 mmol/L (136-145); TCO2 24 mmol/L (25-35)
[2019-05-10] MEDS: LYRICA PO SCH (08:07)
[2019-05-10] MEDS: LEXAPRO PO SCH (08:07)
[2019-05-10] MEDS: NORVASC PO SCH (08:07)
[2019-05-10] MEDS: ASPIRIN EC PO SCH (08:07)
[2019-05-10] MEDS: PERCOCET-10 PO SCH (08:07)
[2019-05-10] MEDS: COZAAR PO SCH (08:07)
[2019-05-10] MEDS: GLUCOPHAGE PO SCH (08:07)
[2019-05-10] MEDS: RANEXA PO SCH (08:07)
[2019-05-10 08:23] VITALS: BP 151/83
--- NOTE | 2019-05-10 10:40 | DISCHARGE SUMMARY ---
ADMISSION DATE: 05/07/2019 DISCHARGE DATE: 05/10/2019 PRIMARY CARE PHYSICIAN: Dr. Franklin. ADMISSION DIAGNOSES: 1. Chronic obstructive pulmonary disease exacerbation. 2. Probable sepsis. 3. Urinary tract infection. 4. Hypotension. 5. Acute kidney injury. 6. Diabetes type 2 with hyperglycemia. DISCHARGE DIAGNOSES: 1. Septic shock due to urinary tract infection, resolved. 2. Urinary tract infection with no pathogenic growth per culture. 3. Chronic obstructive pulmonary disease on home O2, not in exacerbation. 4. Hypoxemic respiratory failure, which is chronic. 5. Acute kidney injury secondary to dehydration, resolved. 6. Type 2 diabetes with hyperglycemia improved. 7. Obesity with a body mass index of 35.5. SUMMARY OF FINDINGS: This is a 59-year-old male who presented to the emergency department initially at [facility] having worsening shortness of breath, was evaluated there and found to be hypotensive and possibly being septic from a UTI. Due to lack of ICU beds there he was transferred to [facility]. He was admitted to the intensive care unit, started on Levophed drip to maintain blood pressures, pattern blood sugars with sliding scale insulin. We did an echocardiogram on 05/07/2019 that showed an ejection fraction of 65%. We did an abdomen and pelvic CT on 05/07/2019 that showed cholelithiasis, bilateral renal stones but no ureteral stones and no hydronephrosis and fatty infiltration of the liver and colonic diverticulosis. Chest x-ray on 05/08/2019 showed no acute process. He was transferred to the PVC unit yesterday. We discontinued his Wang catheter. He remained on oxygen at 6 L a minute. He has continued his IV antibiotics IV hydration. His white blood cell count is back to normal. His kidney function is back to normal with a creatinine of 0.7. Again, his urinalysis grew no pathogenic growth. Blood culture showed no growth after 48 hours and it is felt that he can safely be discharged home with his home O2 on 4 to 5 L via nasal cannula. DISCHARGE MEDICATIONS: 1. Tylenol 650 mg p.o. q.6 hours p.r.n. 2. Amlodipine 10 mg p.o. daily. 3. Aspirin 81 mg p.o. daily. 4. Lexapro 10 mg p.o. daily. 5. Losartan 100 mg p.o. daily. 6. Metformin 1000 mg p.o. b.i.d. 7. Oxycodone 10 1 p.o. b.i.d. 8. Pregabalin 100 mg p.o. b.i.d. 9. Ranexa 1000 mg p.o. b.i.d. 10. ProAir 1 puff inhalation p.r.n. 11. Levaquin 500 mg p.o. daily #5 with no refills. 12. Metoprolol 25 mg p.o. daily. 13. MiraLAX 17 g p.o. daily. 14. Chantix 1 mg p.o. b.i.d. FOLLOWUP: He will need to follow up with his primary care physician this week. Keep himself hydrated. Continue his home O2 at 4 to 5 L continuously and see his doctor this week for adjustment. All discharge instructions were reviewed with the patient and he verbalized understanding. TIME SPENT: This is a 35 minute discharge. Dictated by NARGIS Morgan for Rojas Mena MD cc: NARGIS Morgan MD
== END 2019-05-10 11:53 | disposition home or self-care (01) | DRG 871 ==
LOC: P.ED 22:13 → ICU 05-07 02:21 → SUATTDRO 05-07 02:21 → 2N 05-09 10:27
PROVIDERS: ATTEND Internal Medicine

== ENCOUNTER 2019-09-25 19:51 | Inpatient (IN) ==
[2019-09-25] MEDS ORDERED: ZOFRAN IV ONE (20:01)
[2019-09-25] MEDS ORDERED: NARCAN IV ONE (20:05)
[2019-09-25 20:13] LABS: BE -7.9 mmoll (-3.0-3.0); BLOOD TYPE ARTERIAL; HCO3-(ACT) 18.6 mmoll (20.0-26.0); METHB 1.7 % (0.0-1.5); O2(CT) 19.1 mL/dL (15.0-23.0); O2HB 91.8 % (95.0-99.0); PO2(98.6) 73 mmHg (60-100); SAMPLE BLOOD; THB 14.8 g/dL (11.5-17.4)
[2019-09-25 20:24] LABS: BASO# 0.06 X1000 (0.0-0.2); BASO% 0.5 % (0.0-0.8); EOS# 0.03 X1000 (0.0-0.7); EOS% 0.2 % (0.0-10.0); HEMATOCRIT 47.9 % (42.0-52.0); HEMOGLOBIN 14.8 g/dL (14.0-18.0); IMM GRAN# 0.13 X1000 (0.0-0.04); LYMPH# 0.72 X1000 (1.2-3.4); LYMPH% 5.5 % (20.5-51.1); MCH 29.9 PG (27-31); MCHC 30.9 g/dL (33-37); MCV 96.8 FL (81-99); MONO# 0.66 X1000 (0.11-0.59); MPV 10.8 FL (7.4-10.4); NEUT# 11.55 X1000 (1.4-6.5); NEUT% 87.8 % (42.2-75.2); PLT 219 X1000 (130-400); RBC 4.95 XMIL (4.7-6.1); RDW 13.7 % (11.5-14.5); WBC 13.15 X1000 (4.8-10.8)
--- NOTE | 2019-09-25 20:31 | PROVIDER DOCUMENTATION ---
This chart was entered by Yogesh Pineda Scribe, acting as scribe for Feliciano Orona MD. HPI-General Adult - General Chief Complaint: Altered Mental Status Stated Complaint: decreased LOC Time Seen by Provider: 09/25/19 20:00 Source: patient, family, EMS Allergies/Adverse Reactions: Patient Allergies Allergy/AdvReac Type Severity Reaction Status Date / Time No Known Allergies Allergy Verified 09/25/19 20:34 Home Medications: Home Medication List Medication Instructions Recorded Confirmed Last Taken Type Pregabalin [Lyrica] 100 mg PO BID 10/25/16 09/25/19 Unknown History Albuterol Sulfate [Proair Hfa] 1 puff INH PRN PRN 05/07/19 09/25/19 Unknown History Aspirin [Aspirin EC] 81 mg PO DAILY 05/07/19 09/25/19 Unknown History Escitalopram [Lexapro] 10 mg PO DAILY 05/07/19 09/25/19 Unknown History Metoprolol Succinate 25 mg PO DAILY 05/07/19 09/25/19 Unknown History Ranolazine [Ranexa] 1,000 mg PO BID 05/07/19 09/25/19 Unknown History Varenicline Tartrate [Chantix] 1 mg PO BID 05/07/19 09/25/19 Unknown History Oxycodone HCl/Acetaminophen 1 tab PO BID #20 tab 05/10/19 09/25/19 Unknown Rx [Percocet 10-325 mg Tablet] Polyethylene Glycol 3350 [Miralax] 17 gm PO DAILY #30 powd.pack 05/10/19 09/25/19 Unknown Rx Ibuprofen 1 tab PO PRN PRN 09/25/19 09/25/19 Unknown History Lisinopril/Hydrochlorothiazide 1 tab PO DAILY 09/25/19 09/25/19 Unknown History [Lisinopril-Hctz 20-12.5 mg Tab] Losartan Potassium 1 tab PO DAILY 09/25/19 09/25/19 Unknown History Metformin HCl 1 tab PO BID 09/25/19 09/25/19 Unknown History - History of Present Illness -Gen Adult Nature of Presenting Problems: 59 y/o M presents to the ED via EMS due to altered mental status. Family reports that patient has been altered since around 0700 this morning. Family reports that patient was given an unknown amount of out dated insulin this morning. Patient had a FSBS of 207 with EMS. Patient does take oxycodene 10mg. Patient has a known history of COPD, diabetes, [place], HTN and CAD. Patient also has a history of tobacco abuse. Location of Pain/Injury: reports: none Severity: reports: moderate Onset/Duration: reports: this morning (0700) Timing: reports: still present Context/Activities at Onset: reports: none Modifying Factors: improves with: nothing Associated Symptoms: reports: nausea, shortness of breath, vomiting Similar Symptoms Previously?: No Recently seen or treated by another doctor?: No Review of Systems - Adult - REVIEW OF SYSTEMS - ADULT ROS:: limited per condition Constitutional: reports: fever. denies: chills Eyes: reports: no symptoms reported Ears, Nose, Mouth & Throat: reports: no symptoms reported Cardiovascular: denies: chest pain, palpitations Respiratory: reports: shortness of breath. denies: wheezing Gastrointestinal: reports: nausea, vomiting Genitourinary: reports: no symptoms reported Musculoskeletal: reports: no symptoms reported Integumentary: reports: no symptoms reported Neurological: reports: other (altered mental status). denies: dizziness/ve rtigo, headache/migraines Psychiatric: reports: no symptoms reported Endocrine: reports: no symptoms reported Hematologic/Lymphatic: reports: no symptoms reported Allergic/Immunologic: reports: no symptoms reported All Other Systems: Reviewed and Negative Past History - Adult - PAST MEDICAL HISTORY-ADULT Review of Records: reports: Nursing Assessment Review, Medications Reviewed Major Childhood Illnesses: reports: denies history Cardiovascular: reports: CAD, HTN, [place] Respiratory: reports: COPD Gastrointestinal: reports: denies history Obstetrical/Gynecological: reports: denies history Genitourinary: reports: denies history Musculoskeletal: reports: chronic pain Neurological: reports: denies history Endocrine/Immune: reports: Diabetes Other Conditions: reports: denies history - PRIOR SURGERIES/PROCEDURES Surgical/Procedure History: reports: appendectomy, cardiac stent - IMMUNIZATION STATUS Childhood Immunizations: See Nurse Assessment Flu Vaccine: See Nurse Assessment - FAMILY HISTORY Family History: reviewed, not pertinent - SOCIAL HISTORY Smoking: quit greater than 1 year Substance Use: none/never Physical Exam-General - PHYSICAL EXAM-ADULT Initial Vital Signs Reviewed: Yes - CONSTITUTIONAL General Appearance: other (arousable to voice; drowsy appearance) - HEAD, EARS, NOSE, MOUTH & THROAT HENMT: moist mucous membranes - NECK Neck: full range of motion, normal inspection - RESPIRATORY Respiratory: lungs clear, normal breath sounds, no respiratory distress, no accessory muscle use - CARDIOVASCULAR Cardiovascular: normal peripheral pulses, regular rate, rhythm - GASTROINTESTINAL (ABDOMEN) Abdominal Exam: non tender, soft, distended - MUSCULOSKELETAL Extremity: normal range of motion, normal capillary refill - SKIN Integumentary: normal color, warm/dry - NEUROLOGIC Neurologic: other (drowsy; arousable to voice) - PSYCHIATRIC Psych/Mental Status: other (drowsy; arousable to voice) Progress - PLAN OF CARE/RESULTS Progress/Plan/Lab Results: Vital Signs - 8 hr 09/25/19 20:01 Temperature 100.9 F H Pulse Rate 119 H Respiratory Rate 26 H Blood Pressure 125/71 O2 Sat by Pulse Oximetry 85 L Laboratory Results - last 24 hr 09/25/19 19:55 POC Glucose 207 H Orders Category Date Time Status Cardiac Monitoring DIRECTED Care 09/25/19 20:05 Active IV Insertion ORDERED Care 09/25/19 20:05 Active Notify MD of + Sepsis Screen NOW Care 09/25/19 20:05 Active Notify Physician As Ordered Care 09/25/19 20:05 Active Saline Loc NOW Care 09/25/19 20:00 Active CHEST-1 VIEW [RAD] Stat Exams 09/25/19 20:05 Ordered ABG [RESP] Routine Lab 09/25/19 19:59 Ordered ACETAMINOPHEN [TDM] Stat Lab 09/25/19 20:09 Uncollected ALCOHOL BLOOD Stat Lab 09/25/19 20:01 Uncollected BLOOD CULTURE [BLDCUL] Stat Lab 09/25/19 20:05 Uncollected CBC WITH DIFF [HEME] Stat Lab 09/25/19 20:05 Uncollected CK PROFILE [SP CHEM] Stat Lab 09/25/19 20:05 Uncollected COMPREHENSIVE METABOLIC PANEL [CHEM] Stat Lab 09/25/19 20:05 Uncollected LACTATE, PLASMA [CHEM] Q3H Lab 09/25/19 20:15 Uncollected LACTATE, PLASMA [CHEM] Q3H Lab 09/25/19 23:15 Uncollected LACTATE, PLASMA [CHEM] Q3H Lab 09/26/19 02:15 Uncollected PRO B-NATRIURETIC PEPTIDE Stat Lab 09/25/19 20:00 Uncollected PROTIME WITH INR [COAG] Stat Lab 09/25/19 20:05 Uncollected PTT [COAG] Stat Lab 09/25/19 20:05 Uncollected SALICYLATES [TDM] Stat Lab 09/25/19 20:10 Uncollected TROPONIN T HIGH SENSITIVITY Stat Lab 09/25/19 20:05 Uncollected URINALYSIS W/POSS RFLX CULT [URINALYSIS] Stat Lab 09/25/19 20:05 Uncollected URINE DRUG SCREEN PL Stat Lab 09/25/19 20:02 Uncollected Naloxone [Narcan] Med 09/25/19 20:05 Discontinued 2 mg IV NOW ONE Ondansetron [Zofran] Med 09/25/19 20:01 Discontinued 4 mg IV NOW ONE Oxygen Device Stat Oth 09/25/19 20:05 Active Pulse Oximetry Stat Oth 09/25/19 20:00 Active EKG [EKG] Stat Ther 09/25/19 20:02 Ordered delay in care, paged Dr. Fischer, hospitalist at [facility], at 0155. no answer so far, currently 0230 patient given 2mg IV narcan initially without any response suspect altered mentation due to several etiologies to include hypercarbia,azotemia, and opiate use report given to Dr. Fischer who requests starting BIPAP as long as vomiting is controlled Result Diagrams: 09/25/19 20:12 09/25/19 20:12 - REASSESSMENT Reassessment #1 Time Reassessed: 01:25 Status: unchanged Reassessment Comment: continues to vomit, repeat ABG shows hypercarbia - EKG 1 Time of EKG reading by physician:: 20:07 EKG Read and Signed by:: Feliciano Orona EKG Interpretation (*Must complete 3 of following elements*): Abnormal Rate: 115 Rhythm: sinus tachycardia QRS: normal ST Wave: normal - XRAY 1 XRAY Study: Chest Impression: See EMR Report (EXAM: CHEST-1 VIEW 09/25/2019 HISTORY: AMS, sepsis protocol TECHNIQUE: AP portable erect at 2033 COMMENT: The inspiration is slightly suboptimal. The appearance the chest has not changed significantly sinc e 05/08/2019 considering differences in technique. IMPRESSION: No evidence of acute disease. Electronically signed by Stan Garcia 09/25/2019 8:44 PM 09/25/192043 Interpreting Physician: Stan Garcia MD Dictated Date/Time: 09/25/192042 cc: Feliciano Orona MD; Ishan Franklin) - CT/MRI 1 CT Study: Abdomen, Head, Pelvis, Thorax Impression: See EMR Report (EXAM: CT THORAX/ABD/PELVIS W/O CON 09/25/2019 HISTORY: vomiting, shortness of breath TECHNIQUE: This exam was performed using automated exposure control, adjustment of mA or kV according to patient size, and/or use of iterative reconstruction technique. COMMENT: These studies were performed without contrast. Sensitivity is therefore limited. The thoracic study is compared with the previous examination of 07/10/2016. The abdominal study is compared with 05/07/2019. Thorax: There are coronary calcifications. There is some atelectasis versus fibrosis in the costophrenic sulci of both lower lobes particularly the right lower lobe. This was not present at the time the previous study. There are no abnormal fluid collections. The regional skeleton appears to be intact. There are some calcified granulomatous nodes particularly in the right tracheobronchial region and left hilum. Abdomen/pelvis: The basilar opacities in the lower lobes posteriorly were largely present at the time the previous study of 05/07/2019. This may be due to atelectasis or fibrosis. There is a stone in the lower mid collecting system of the right kidney measuring 3 to 4 mm. There is mild perinephric stranding on the left which was also present previously. There is an apparent stone at the ureteropelvic junction on the left measuring up to 5 mm. There is no evidence of abdominal aortic aneurysm or bowel obstruction. The gallbladder is surgically absent. There is no evidence of appendicitis or diverticulitis. There are diverticula present in the descending and proximal sigmoid colon. There is a moderate amount of stool in the rectosigmoid colon. The regional skeleton is stable in appearance. IMPRESSION: 1. Bibasilar atelectasis versus fibrosis. 2. Stone in the left ureteropelvic junction without evidence of significant obstructive change. Mild constipation. Diverticulosis coli. Electronically signed by Stan Garcia 09/25/2019 9:59 PM) CT Results: NAD Departure - Departure Date of Disposition Decision: 09/26/19 Time of Disposition Decision: 03:16 DIAGNOSIS: Hypercarbia, Elevated troponin, CLAY (acute kidney injury), Hyperkalemia Altered mental state Qualifiers: Altered mental status type: unspecified Qualified Code(s): R41.82 - Altered mental status, unspecified Opiate dependence Qualifiers: Substance use status: with unspecified opioid-induced disorder Qualified Code(s): F11.29 - Opioid dependence with unspecified opioid-induced disorder Intractable vomiting Qualifiers: Vomiting type: unspecified Nausea presence: unspecified Qualified Code(s): R11.10 - Vomiting, unspecified Disposition: ADMITTED INPATIENT 09 Certified Medical Emergency: Emergent Condition: Stable Referrals and Follow-Ups: Ishan Franklin [Primary Care Provider] - Discharge Education: Steps to Quit Smoking, [id number] - Critical Care Note This patient required my direct & personal management of CC.: No Attestation - Physician/ YG Attestation Patient care was provided by Advanced Practice Provider:: No The physician spent face to face time with patient:: Yes Advanced Practice Provider documentation review:: Supervising physician onsite and consulted in the evaluation and care of this patient. The physician did have a face to face encounter with the patient. - HEART Score HEART Score: History: Slightly Suspicious HEART Score: ECG: Non-Specific Repolarization Disturbance/LBBB/PM HEART Score: Age: 45-65 Years HEART Score: Risk Factors for Atherosclerotic Disease: > or = 3 Risk Factors or History of Atherosclerotic Disease HEART Score: Troponin: 1-3x Normal Limit Total HEART Score:: 5 This chart was documented by the indicated scribe, (Yogesh Pineda Scribtaylor) and accurately reflects the services I performed and decisions made by me, Feliciano Orona MD, as attested by the provider's signature.
[2019-09-25 20:36] LABS: INR 0.99; PROTIME 13.6 Seconds (11.0-16.0); PTT 29.4 Seconds (22.3-41.8)
--- NOTE | 2019-09-25 20:46 | Diag Imaging Result Doc PS360 ---
EXAM: CHEST-1 VIEW 09/25/2019 HISTORY: AMS, sepsis protocol TECHNIQUE: AP portable erect at 2033 COMMENT: The inspiration is slightly suboptimal. The appearance the chest has not changed significantly since 05/08/2019 considering differences in technique. IMPRESSION: No evidence of acute disease. Electronically signed by Stan Garcia 09/25/2019 8:44 PM
[2019-09-25 20:47] LABS: ACETAMINOPHEN < 1.2 ug/mL (10-30); AGAP 13; ALBUMIN 4.7 g/dL (3.5-5.0); ALKALINE PHOSPHATASE 107 U/L (32-122); BUN 48 mg/dL (8-22); CALCIUM 8.9 mg/dL (8.8-10.2); CHLORIDE 99 mmol/L (98-107); CK PROFILE 92 U/L (24-204); COSMO 286; CREATININE 2.7 mg/dL (0.7-1.2); ESTIMATED GFR 24; GLUCOSE 231 mg/dL (70-104); GOT 85 U/L (10-34); GPT 95 U/L (10-44); POTASSIUM 5.8 mmol/L (3.5-5.1); SALICYLATES < 3.00 mg/dL (3-10); SODIUM 133 mmol/L (136-145); TCO2 21 mmol/L (25-35); TOTAL PROTEIN 8.7 g/dL (6.3-8.3)
[2019-09-25 21:11] LABS: ALLEN TEST YES; MODALITY VENTIMASK
[2019-09-25] MEDS: NS 2,000 ML IV ONE ×2 (21:11→21:16)
--- NOTE | 2019-09-25 22:02 | Diag Imaging Result Doc PS360 ---
EXAM: CT THORAX/ABD/PELVIS W/O CON 09/25/2019 HISTORY: vomiting, shortness of breath TECHNIQUE: This exam was performed using automated exposure control, adjustment of mA or kV according to patient size, and/or use of iterative reconstruction technique. COMMENT: These studies were performed without contrast. Sensitivity is therefore limited. The thoracic study is compared with the previous examination of 07/10/2016. The abdominal study is compared with 05/07/2019. Thorax: There are coronary calcifications. There is some atelectasis versus fibrosis in the costophrenic sulci of both lower lobes particularly the right lower lobe. This was not present at the time the previous study. There are no abnormal fluid collections. The regional skeleton appears to be intact. There are some calcified granulomatous nodes particularly in the right tracheobronchial region and left hilum. Abdomen/pelvis: The basilar opacities in the lower lobes posteriorly were largely present at the time the previous study of 05/07/2019. This may be due to atelectasis or fibrosis. There is a stone in the lower mid collecting system of the right kidney measuring 3 to 4 mm. There is mild perinephric stranding on the left which was also present previously. There is an apparent stone at the ureteropelvic junction on the left measuring up to 5 mm. There is no evidence of abdominal aortic aneurysm or bowel obstruction. The gallbladder is surgically absent. There is no evidence of appendicitis or diverticulitis. There are diverticula present in the descending and proximal sigmoid colon. There is a moderate amount of stool in the rectosigmoid colon. The regional skeleton is stable in appearance. IMPRESSION: 1. Bibasilar atelectasis versus fibrosis. 2. Stone in the left ureteropelvic junction without evidence of significant obstructive change. Mild constipation. Diverticulosis coli. Electronically signed by Stan Garcia 09/25/2019 9:59 PM
[2019-09-25 22:35] LABS: URINE SOURCE CATH
[2019-09-25 22:43] LABS: BILIRUBIN URINE NEGATIVE (NEGATIVE); BLOOD URINE NEGATIVE (NEGATIVE); COLOR YELLOW; GLUCOSE URINE TRACE mg/dL (NEGATIVE); KETONE URINE NEGATIVE (NEGATIVE); LEUKOCYTES URINE NEGATIVE (NEGATIVE); NITRITE URINE NEGATIVE (NEGATIVE); PROTEIN URINE 30 mg/dL (NEGATIVE); SP GRAVITY URINE 1.016; TURBIDITY URINE HAZY (CLEAR); UROBILINOGEN URINE NORMAL (NORMAL)
[2019-09-25 22:52] LABS: UR AMPHETAMINES QUAL NONE DETECTED (NONE DETECT); UR BARBITUATES QUAL NONE DETECTED (NONE DETECT); UR BENZODIAZEPIN QUAL NONE DETECTED (NONE DETECT); UR CANNABINOIDS QUAL NONE DETECTED (NONE DETECT); UR COCAINE QUAL NONE DETECTED (NONE DETECT); UR METHADONE QUAL NONE DETECTED (NONE DETECT); UR METHAMPHETAMINE QUAL NONE DETECTED (NONE DETECT); UR OPIATES QUAL NONE DETECTED (NONE DETECT); UR OXYCODONE QUAL PRESUMPTIVE POSITIVE (NONE DETECT); UR PCP QUAL NONE DETECTED (NONE DETECT); UR PROPOXYPHENE QUAL NONE DETECTED (NONE DETECT); UR TCA QUAL NONE DETECTED (NONE DETECT)
[2019-09-25 23:13] LABS: UR EPITHELIAL CELLS <10 /HPF (<10); URINE BACTERIA 3+ /HPF; URINE RBC <10 /HPF (<10); URINE WBC <10 /HPF (<10)
[2019-09-25 23:14] LABS: URINE CRYSTALS CA OXALATE PRESENT; URINE SMALL ROUND CELLS NONE SEEN
[2019-09-26 00:55] LABS: BE -8.7 mmoll (-3.0-3.0); BLOOD TYPE ARTERIAL; HCO3-(ACT) 18.1 mmoll (20.0-26.0); METHB 1.6 % (0.0-1.5); O2(CT) 18.8 mL/dL (15.0-23.0); O2HB 94.4 % (95.0-99.0); PO2(98.6) 92 mmHg (60-100); SAMPLE BLOOD; SAO2 98.8 % (95.0-100.0); THB 14.1 g/dL (11.5-17.4)
[2019-09-26 00:57] LABS: pH(98.6) 7.15 (7.35-7.45)
[2019-09-26 00:58] LABS: ALLEN TEST YES; MODALITY HIGH FLOW NASAL CAN; PCO2(98.6) 60 mmHg (35-45)
[2019-09-26] MEDS ORDERED: NS 1,000 ML IV ONE ×2 (01:51→03:07)
--- NOTE | 2019-09-26 05:29 | EKG Report ---
Test Performed on : 09/25/2019 8:06:49 PM Test Reason : pain Blood Pressure : / mmHG Vent. Rate : 115 BPM Atrial Rate : 115 BPM P-R Int : 150 ms QRS Dur : 094 ms QT Int : 334 ms P-R-T Axes : 047 024 063 degrees QTc Int : 462 ms Sinus tachycardia. Otherwise normal ECG When compared with ECG of 06-MAY-2019 22:17, No significant change was found Unconfirmed Result
[2019-09-26] MEDS: ZOFRAN IV PRN ×2 (06:53→14:47)
[2019-09-26] MEDS: NS 1,000 ML IV SCH ×5 (06:57→23:48)
[2019-09-26] MEDS: HUMALOG SUBQ SCH ×4 (07:01→21:26)
--- NOTE | 2019-09-26 07:17 | Diag Imaging Result Doc PS360 ---
EXAM: CHEST-PORTABLE 09/26/2019 HISTORY: new admit TECHNIQUE: Erect AP portable at 0708 COMMENT: There is mild cardiomegaly. There is increased pulmonary vascularity. Compared to 09/25/2019 this has not changed significantly. IMPRESSION: Cardiomegaly. Electronically signed by Stan Garcia 09/26/2019 7:15 AM
--- NOTE | 2019-09-26 08:22 | Diag Imaging Result Doc PS360 ---
EXAM: CT HEAD W/O CONTRAST 09/25/2019 HISTORY: ams TECHNIQUE: This exam was performed using automated exposure control, adjustment of mA or kV according to patient size, and/or use of iterative reconstruction technique. COMMENT: There is no evidence of mass effect, bleed, or abnormal extra-axial fluid collection. Compared to 05/06/2019 there has been no significant change. There is mild mucosal thickening in both maxillary sinuses. There are no air-fluid levels. The calvarium is intact. IMPRESSION: No evidence of acute intracranial disease. Chronic maxillary sinusitis. Electronically signed by Stan Garcia 09/26/2019 8:20 AM
[2019-09-26 08:46] LABS: BASO# 0.05 X1000 (0.0-0.2); BASO% 0.6 % (0.0-0.8); EOS# 0.01 X1000 (0.0-0.7); EOS% 0.1 % (0.0-10.0); HEMATOCRIT 42.5 % (42.0-52.0); HEMOGLOBIN 13.2 g/dL (14.0-18.0); IMM GRAN# 0.19 X1000 (0.0-0.04); IMM GRAN% 2.1 % (0.0-0.5); LYMPH% 11.2 % (20.5-51.1); MCH 30.9 PG (27-31); MCHC 31.1 g/dL (33-37); MCV 99.5 FL (81-99); MONO# 0.78 X1000 (0.11-0.59); MONO% 8.8 % (1.7-9.3); MPV 11.1 FL (7.4-10.4); NEUT# 6.86 X1000 (1.4-6.5); NEUT% 77.2 % (42.2-75.2); PLT 162 X1000 (130-400); RBC 4.27 XMIL (4.7-6.1); RDW 13.9 % (11.5-14.5); WBC 8.89 X1000 (4.8-10.8)
[2019-09-26 09:07] LABS: ALBUMIN 3.4 g/dL (3.5-5.0); CALCIUM 7.8 mg/dL (8.8-10.2); CREATININE 1.7 mg/dL (0.7-1.2); MAGNESIUM 1.9 mg/dL (1.5-2.7); POTASSIUM 5.4 mmol/L (3.5-5.1); TOTAL BILIRUBIN 0.62 mg/dL (0.20-1.00); TOTAL PROTEIN 6.9 g/dL (6.3-8.3)
[2019-09-26] MEDS ORDERED: SODIUM BICARBONATE 8.4% IV PUSH ONE (09:28)
[2019-09-26] MEDS ORDERED: SALINE LOCK IV FLUID XX ONE (09:29)
[2019-09-26] MEDS ORDERED: DUONEB (A & A) INH PRN (09:29)
[2019-09-26] MEDS ORDERED: SOLU-MEDROL IV SCH (09:30)
[2019-09-26] MEDS ORDERED: SOLU-MEDROL IV ONE (09:36)
[2019-09-26] MEDS: MORPHINE IV PRN ×4 (09:57→21:45)
[2019-09-26] MEDS: TOPROL XL PO SCH ×2 (10:20→10:58)
[2019-09-26] MEDS: LOVENOX SUBQ SCH (10:20)
[2019-09-26] MEDS: ZOSYN 2.25 GM in NS 50 ML IV SCH ×2 (10:20→17:36)
[2019-09-26] MEDS: ZYVOX 600 MG/D5W 600 MG/300 ML IVPB IV SCH ×2 (10:20→21:26)
[2019-09-26] MEDS ORDERED: DULCOLAX PR ONE (10:24)
[2019-09-26 10:40] LABS: ALLEN TEST YES; BE -2.8 mmoll (-3.0-3.0); BLOOD TYPE ARTERIAL; HCO3-(ACT) 22.7 mmoll (20.0-26.0); METHB 1.6 % (0.0-1.5); O2(CT) 18.1 mL/dL (15.0-23.0); O2HB 96.1 % (95.0-99.0); PO2(98.6) 186 mmHg (60-100); SAMPLE BLOOD; SAO2 99.9 % (95.0-100.0); THB 13.1 g/dL (11.5-17.4)
[2019-09-26 10:42] LABS: MODALITY HIGH FLOW NASAL CAN; PCO2(98.6) 75 mmHg (35-45); pH(98.6) 7.17 (7.35-7.45)
[2019-09-26 11:20] LABS: CALCIUM 7.5 mg/dL (8.8-10.2); CREATININE 1.5 mg/dL (0.7-1.2); POTASSIUM 5.1 mmol/L (3.5-5.1)
[2019-09-26] MEDS: DUONEB (A & A) INH SCH ×4 (11:22→23:34)
[2019-09-26 12:53] LABS: UR CREAT RANDOM 52.9 mg/dL (14-26)
[2019-09-26 13:35] LABS: ALLEN TEST YES; BE -2.8 mmoll (-3.0-3.0); BLOOD TYPE ARTERIAL; HCO3-(ACT) 22.7 mmoll (20.0-26.0); METHB 1.2 % (0.0-1.5); O2(CT) 18.2 mL/dL (15.0-23.0); O2HB 94.5 % (95.0-99.0); PO2(98.6) 80 mmHg (60-100); SAMPLE BLOOD; SAO2 97.9 % (95.0-100.0); SRATE 18 BPM; THB 13.7 g/dL (11.5-17.4); pH(98.6) 7.24 (7.35-7.45)
[2019-09-26 13:38] LABS: MODALITY BI PAP; PCO2(98.6) 60 mmHg (35-45)
--- NOTE | 2019-09-26 14:10 | Diag Imaging Result Doc PS360 ---
EXAM: US RENAL 2 (RETROPER) COMPLETE 09/26/2019 HISTORY: imani TECHNIQUE: Renal ultrasound COMMENT: The kidneys are without evidence of hydronephrosis or mass and are normal in echogenicity. The bladder is not distended and there is a Wang catheter. The right kidney is 12 x 7.4 x 5.5 cm the left is 12.1 x 6 x 5.2 cm. IMPRESSION: No evidence of obstructive uropathy. Electronically signed by Stan Garcia 09/26/2019 2:08 PM
--- NOTE | 2019-09-26 15:11 | HISTORY AND PHYSICAL ---
PRIMARY CARE PROVIDER: Dr. Yoseph Franklin. CHIEF COMPLAINT: Altered mental status. HISTORY OF PRESENT ILLNESS: Mr. Jean Gonzalez is a 59-year-old male with a medical history of COPD, hypertension, diabetes, who apparently started having some altered mental status that started yesterday morning around 7 a.m. The family in the ER note had reported that he had received an unknown amount of outdated insulin that morning. However, his blood sugar was 207 when he was brought via EMS. He does have chronic pain syndrome, he is on oxycodone. They had given him Narcan which really did not affect him at all. He was found to have some CO2 retention with acidosis and hypoxia. He was placed on BiPAP. Vitals remained stable and he was sent here via EMS to ICU bed 4 for further treatment and evaluation. As of midnight, he was still with metabolic acidosis but also with CO2 retention as well and acute kidney injury, so will keep him to further treat COPD exacerbation with acute kidney injury along with bibasilar pneumonia. He did have leukocytosis but the lactate was normal. Throughout the night, he did become agitated and was pulling his BiPAP off, so he was placed on 15 L high-flow nasal cannula by Respiratory Therapy. Now we are going to consult Pulmonary to assist with further treatment. PAST MEDICAL HISTORY: 1. Chronic pain syndrome, on oxycodone. 2. Coronary artery disease with a history of PR and coronary stent. 3. Hypertension. 4. Diabetes mellitus type 2. 5. COPD. No home oxygen. SURGICAL HISTORY: 1. Appendectomy. 2. Cardiac stents. SOCIAL HISTORY: Smokes a pack per day. No alcohol or illicit drug use. FAMILY HISTORY: Unknown. ALLERGIES: No known drug allergies. HOME MEDICATIONS: 1. Aspirin 81 mg p.o. daily. 2. Chantix 1 mg p.o. twice daily. 3. Ibuprofen 600 mg p.o. as needed. 4. Lexapro 10 mg p.o. daily. 5. Lisinopril/hydrochlorothiazide 20/12.5 one tablet p.o. daily. 6. Losartan/potassium 100 mg p.o. daily. 7. Lyrica 100 mg p.o. twice daily. 8. Metformin 1000 mg p.o. twice daily. 9. Metoprolol succinate 25 mg p.o. daily. 10. Albuterol ProAir 1 puff as needed. 11. Ranexa 1000 mg p.o. twice daily. 12. MiraLAX 17 g p.o. daily. 13. Percocet 10 mg 1 tablet p.o. twice daily. REVIEW OF SYSTEMS: Fourteen point review of systems are complete and all were negative except for those mentioned in above HPI. He did complain of headache and abdominal pain. PHYSICAL EXAMINATION: VITAL SIGNS: Temperature 98.5 degrees, heart rate 93, respiratory rate 20, blood pressure 132/75, O2 saturation 98% on high-flow nasal cannula 15 L. GENERAL: Mr. Jean Gonzalez is a 59-year-old male. He is a little bit lethargic but agitated at the same time. However, he is pleasant, he is not using foul language or anything like that. He is he is stable. HEENT: Atraumatic, normocephalic. Pupils equal, round, reactive to light. Extraocular movements intact. Mucous membranes are moist. NECK: Trachea midline. CARDIOVASCULAR: S1, S2. Regular rate and rhythm. No rubs, gallops, murmurs. No lower extremity edema. +2 dorsalis and radial pulses. Negative JVD or carotid bruits. PULMONARY: Clear to auscultate. Bilateral breath sounds. No accessory muscle use or work of breathing noted GASTROINTESTINAL: Soft. Tender in all 4 quadrants. Positive bowel sounds x4. EXTREMITIES: Moves all extremities equally. Decreased range of motion, decreased strength, just generalized. NEUROLOGIC: Oriented to name only. Followed simple commands. Sensory was intact. SKIN: Warm, dry, intact. LABORATORY DATA: White blood cells originally was 13,000, today is 8000, hemoglobin 13, hematocrit 42, platelet count 162,000. ABGs around midnight, pH 7.15, pCO2 60, PO2 92, bicarb 18, base excess -8, saturation 94%. Lactate 0.5 and a serum lactate of 0.6. Sodium 138, potassium 5.4, BUN 42, creatinine is 1.7, glucose is 241, calcium 7.1, magnesium 1.9. Bilirubin 0.62, AST 45, ALT 58. Troponin 30. ProBNP is 482. Albumin is 3.4. Urinalysis, 30 protein, otherwise negative. Urine drug screen positive for oxycodone, less than 3 on salicylates, less than 1.2 on acetaminophen, and 0 on alcohol. IMAGIN. EKG. Sinus tachycardia, rate 115. QTc 462. 2. Chest x-ray on the . No evidence of acute disease. 3. Chest, abdomen and pelvis CT on the , bibasilar atelectasis versus fibrosis. Stone in the left UPJ without obstruction. There is constipation, diverticulosis. 4. Head CT. No acute findings. There is chronic maxillary sinusitis. 5. Chest x-ray today. Cardiomegaly. Increased pulmonary vascularity. ASSESSMENT AND PLAN: 1. Chronic obstructive pulmonary disease exacerbation with hypercapnia and hypoxemia with respiratory failure requiring BiPAP. However, he is not wearing his BiPAP, he kept pulling it off. Currently, he is on high-flow nasal cannula but we are going to try to wean that down. He does have acidosis with this. It could be respiratory or metabolic. CO2 at 60, bicarb is 18 with a base excess of -8 and a pH of 7.15. He is agitated but he is not significantly agitated. He does not have work of breathing noted. We will go ahead and do steroids, nebulizers and antibiotic coverage. 2. Probable bilateral bibasilar pneumonia. We will do broad-spectrum antibiotics for now. Attempt to get a sputum culture. 3. A left ureteropelvic junction stone, nonobstructive, found on CT. 4. Acute kidney injury. Could be secondary to dehydration. Intravenous fluid hydration initiated. 5. Hyperkalemia. Will improve with fluids and he is also going to get some bicarb as well. He is on insulin. No ectopy noted. 6. Metabolic acidosis with respiratory acidosis as well. CO2 is up, bicarb down and pH is 7.15, so we will give some bicarb, continue with IV fluid hydration and repeat an ABG, and we will try to do BiPAP of he can tolerate it. 7. Chronic pain syndrome. Oxycodone has been stopped. He did receive Narcan at [facility] emergency room. It did not have a huge result so most likely the sedative effect is probably from the CO2 retention and acidosis. 8. Metabolic encephalopathy. Hopefully will improve with current treatments. 9. Chronic maxillary sinusitis. 10. Constipation with diverticulosis. We continued the MiraLAX. 11. History of coronary artery disease and myocardial infarction. Going to continue the aspirin, metoprolol, the Ranexa. 12. Hypertension. Currently going to hold lisinopril/hydrochlorothiazide, thiazide and the losartan due to the acute kidney injury. Blood pressure is pretty stable right now and he still has some metoprolol that is on board. 13. Tobacco abuse. He has been on Chantix at home. I am going to hold the Chantix for now. We can add a nicotine patch if needed. 14. Diabetes mellitus type 2. We will do pattern blood glucoses, sliding scale insulin. Hold metformin. 15. Deep venous thrombosis prophylaxis. Lovenox low-dose. Dictated by NARGIS Pinzon for Andrzej Kovacs MD Addendum: Patient seen and examined by myself. Agree with NARGIS note. It reflects my assessment and plan. Patient is being admitted to hospital for bibasilar pneumonia and altered mental status. Will admit him to ICU for better monitorin. cc: NARGIS Pinzon MD MTD
[2019-09-26] MEDS: SOLU-MEDROL IV SCH (17:00)
--- NOTE | 2019-09-26 17:21 | CONSULTATION ---
DATE OF CONSULTATION: 09/26/2019 ATTENDING AND REFERRING PHYSICIAN: Latonyaist. CHIEF COMPLAINT: Mental status changes with increased shortness of breath. HISTORY OF PRESENT ILLNESS: This 59-year-old male was admitted with mental status changes and increased problems breathing. He has a history of urinary retention secondary to urethral strictures. The patient's CT stone search revealed a 3 to 4 mm right lower pole stone and a 4 to 5 mm stone in the area of the left ureteral pelvic junction. Neither of these were obstructing. The patient is still somewhat confused. He will acknowledge his name but just mumbles pretty much incoherently most of the time. The patient was followed in the [facility] until November 2016. His PSA at that time was 0.3. He was originally seen for urinary retention secondary to meatal stenosis and a proximal bulbar stricture. He underwent treatment of that and apparently has been voiding without problems since then. He currently has a Wang catheter that was placed without difficulty. He has a history of recurrent urinary infections and epididymitis. In 2017 he was on Flomax at 0.4 mg a day. PAST MEDICAL HISTORY: 1. Chronic lower back pain. 2. Coronary artery disease. 3. Hypertension. 4. Diabetes. 5. Severe COPD on home oxygen. 6. Gastroesophageal reflux disease. CURRENT MEDICATIONS: Documented on the chart but do not include Flomax. PAST SURGICAL HISTORY: Appendectomy, coronary artery stent placement, EGD with gastric biopsy. SOCIAL HISTORY: Cigarettes over a pack a day for over 30 years. He appears to be on Chantix at home trying to quit. ETOH use negative. ALLERGIES: No known drug allergies. REVIEW OF SYSTEMS: The patient answers no to all questions concerning review of systems PHYSICAL EXAMINATION: General: An obese, age apparent, normally developed, white male who is cooperative and is oriented to his name. HEENT: Normal for age. Lungs: Clear. Cardiovascular: Regular rate and rhythm with holosystolic murmur. Abdomen: Obese, soft, nontender. No hepatosplenomegaly or masses. Normal bowel sounds. : Uncircumcised male. Both testes are down. Small bilateral hydroceles. Testes are palpably normal. Foreskin retracts. Wang catheter in place draining clear urine. Extremities: No clubbing, cyanosis, or edema. Neurologic: No focal deficits. LABORATORY EVALUATION: Has a serum sodium of 139, potassium 5.1, chloride 108, bicarb 22, BUN 38, creatinine 1.5. His creatinine is decreasing. Serum glucose was 225. Urinalysis is negative. CT renal stone search is as noted in the history of present illness. IMPRESSION: 1. Exacerbation of chronic obstructive pulmonary disease with probable pneumonia and mental status changes. 2. Small bilateral renal stones without obstruction that have a good chance of spontaneously passing. 3. History of meatal stenosis and proximal bulbar stricture. 4. History of urinary retention secondary to bulbar strictures. 5. History of recurrent urinary tract infections. RECOMMEND: 1. Flomax at 0.4 mg a day. 2. Will further discuss treatment of his renal lithiasis after his current medical problems are under control and he could understand recommendations. 3. A 4 to 5 mm stone has a greater than 50% chance of spontaneously passing. Thank you for this consultation. cc: Giorgio Choi MD
[2019-09-26] MEDS: PULMICORT INH SCH (19:58)
--- NOTE | 2019-09-26 20:27 | PULMONOLOGY CONSULTATION ---
DATE: 09/26/2019 CONSULTING PHYSICIAN: Dr. Nelson. REASON FOR CONSULT: Acute respiratory failure. HISTORY OF PRESENT ILLNESS: This is a 59-year-old gentleman with a history of COPD, hypertension, diabetes, prior urinary tract infection, who presented to the emergency room with altered mental status that started yesterday morning about 7 a.m. Therefore, according to the chart, the patient's daughter stated they were walking at the [employer] and the patient fell on the daughter twice. They went home. The patient went to sleep on his hospital bed and he would not wake up. EMS reports on their arrival, he responded to verbal stimuli, a room air oxygen saturation of 90% that 96% on 4 L nasal cannula. According to the emergency room documentation, he was given 2 mg of Narcan with no change. He was found to be hypercarbic having a CO2 of 61. He was placed on BiPAP. Throughout the night the patient became agitated, was pulling at his BiPAP so he was placed on 15 L high-flow nasal cannula by Respiratory Therapy. He became more acidotic. CO2 increased to 75. He was placed back on BiPAP. CO2 has decreased to 60 with a PO2 of 80 and pulmonary has been consulted for further management. PAST MEDICAL HISTORY: 1. Chronic pain syndrome, on chronic oxycodone. 2. Coronary artery disease with a history of NV and coronary stent. 3. Hypertension. 4. Diabetes mellitus type 2. 5. COPD on a patient who has been prescribed home O2, but refused to wear it. SURGICAL HISTORY: 1. Appendectomy. 2. Cardiac stents. SOCIAL HISTORY: He smokes a pack a day. He denies alcohol or illicit drug use. FAMILY HISTORY: Unable to obtain due to patient's mental status. ALLERGIES: Per the chart documented no known drug allergies. REVIEW OF SYSTEMS: Unable to obtain from the patient. PHYSICAL EXAMINATION: General: This is a 59-year-old gentleman who is lying on the bed in ICU in no distress. Vital Signs: Blood pressure is 166/88 with heart rate of 92, respirations 18, temperature is 98.5 degrees with O2 saturations 91 to 93 percent on nasal cannula at 4 L on BiPAP at 40%. HEENT: Head is normocephalic, atraumatic. Mucous membranes are moist. Neck: Supple with trachea midline. Cardiovascular: Regular rate and rhythm. S1 and S2 appreciated. He has no lower extremity edema. Peripheral pulses are palpable x4 extremities. Pulmonary: Breath sounds are clear with no increased work of breathing noted. Chest rises and falls symmetric with respiration. Chest wall is nontender to palpation. Gastrointestinal: Abdomen is soft, nondistended with bowel sounds in all 4 quadrants. Extremities: He moves all extremities well. Neurologic: He is oriented to his name. He acknowledges his name, but he mumbles incoherently. He does not follow commands. LABORATORIES: 1. WBC is 8.9 with hemoglobin 13.2, hematocrit 42.5, and platelets 162,000. Sodium is 139, potassium 5.1, BUN 38, creatinine 1.5 with a glucose of 225. Urinalysis is essentially negative. Urine drug screen is presumptive positive for oxycodone. Blood alcohol reveals none detected. INR 0.99. 2. ABGs on BiPAP at 40% 18/6, pH of 7.24 with pCO2 of 60, PO2 80 with bicarbonate of 22.7. Blood cultures, urine cultures, sputum culture pending. 3. CT of the abdomen and pelvis revealed basilar opacities in the lower lobes posteriorly with atelectasis versus fibrosis, 5 mm left UPJ nonobstructing stone, mild constipation. 4. Chest x-ray revealed cardiomegaly, increased pulmonary vascularity. 5. CT of the head revealed no evidence of acute intracranial disease with chronic maxillary sinusitis. 6. Renal ultrasound revealed no evidence of obstructive uropathy. ASSESSMENT AND PLAN: 1. Chronic obstructive pulmonary disease acute exacerbation Bronchodilators, steroids 2. Acute hypoxemic, hypercapnic respiratory failure. Oxygen and BiPAP 3..Bibasilar pneumonia. Blood cultures and sputum cultures are pending. continue Zyvox and Zosyn and further antibiotics will be culture driven. 4. Acute kidney injury. IV hydration and trend labs. renal dose medications as appropriate. 5. Chronic pain syndrome. hold sedating medications at present 6. Chronic maxillary sinusitis. 7. Hypertension. 8. Nicotine addiction, ongoing tobacco use. Smoking cessation Plan was discussed with Dr. Kurtz. Dictated by NARGIS Deutsch for Brad Kurtz MD History and physical was performed by NARGIS Hardy. I reviewed the history, labs, and x-rays remotely. I agree with the above assessment and plan. Brad Kurtz M.D. cc: NARGIS Deutsch MD MTDD
[2019-09-26] MEDS: RANEXA PO SCH ×2 (21:24→21:29)
[2019-09-26] MEDS: FLOMAX PO SCH ×2 (21:25→23:44)
[2019-09-26] MEDS: LYRICA PO SCH ×2 (21:25→21:28)
[2019-09-27] MEDS: SOLU-MEDROL IV SCH ×4 (00:57→23:44)
[2019-09-27] MEDS: ZOSYN 2.25 GM in NS 50 ML IV SCH (01:07)
[2019-09-27] MEDS: DUONEB (A & A) INH SCH ×6 (03:10→23:15)
[2019-09-27 04:43] LABS: ALLEN TEST YES; BE -2.2 mmoll (-3.0-3.0); BLOOD TYPE ARTERIAL; HCO3-(ACT) 23.2 mmoll (20.0-26.0); METHB 0.5 % (0.0-1.5); O2(CT) 16.7 mL/dL (15.0-23.0); O2HB 97.7 % (95.0-99.0); PCO2(98.6) 37 mmHg (35-45); PO2(98.6) 172 mmHg (60-100); SAMPLE BLOOD; SAO2 100.7 % (95.0-100.0); THB 11.9 g/dL (11.5-17.4); pH(98.6) 7.39 (7.35-7.45)
[2019-09-27 04:44] LABS: MODALITY BI PAP
[2019-09-27] MEDS: HUMALOG SUBQ SCH ×4 (06:42→20:13)
--- NOTE | 2019-09-27 07:29 | Diag Imaging Result Doc PS360 ---
EXAM: CHEST-PORTABLE 09/27/2019 HISTORY: short of breath TECHNIQUE: AP portable at 0513 COMMENT: There is cardiomegaly and increased pulmonary vascularity. The appearance of the chest has not changed significantly since 09/26/2019. IMPRESSION: Cardiomegaly. Electronically signed by Stan Garcia 09/27/2019 7:27 AM
[2019-09-27 07:31] LABS: BASO# 0.01 X1000 (0.0-0.2); BASO% 0.1 % (0.0-0.8); EOS# 0.01 X1000 (0.0-0.7); EOS% 0.1 % (0.0-10.0); HEMATOCRIT 40.7 % (42.0-52.0); HEMOGLOBIN 12.8 g/dL (14.0-18.0); IMM GRAN# 0.02 X1000 (0.0-0.04); IMM GRAN% 0.2 % (0.0-0.5); LYMPH# 0.67 X1000 (1.2-3.4); LYMPH% 7.7 % (20.5-51.1); MCH 30.7 PG (27-31); MCHC 31.4 g/dL (33-37); MCV 97.6 FL (81-99); MONO# 0.21 X1000 (0.11-0.59); MONO% 2.4 % (1.7-9.3); MPV 11.8 FL (7.4-10.4); NEUT# 7.79 X1000 (1.4-6.5); NEUT% 89.5 % (42.2-75.2); PLT 166 X1000 (130-400); RBC 4.17 XMIL (4.7-6.1); RDW 13.3 % (11.5-14.5); WBC 8.71 X1000 (4.8-10.8)
[2019-09-27 07:48] LABS: AGAP 12; ALBUMIN 3.3 g/dL (3.5-5.0); ALKALINE PHOSPHATASE 65 U/L (32-122); BUN 30 mg/dL (8-22); CALCIUM 8.6 mg/dL (8.8-10.2); CHLORIDE 110 mmol/L (98-107); COSMO 304; CREATININE 1.1 mg/dL (0.7-1.2); ESTIMATED GFR > 60; GLUCOSE 322 mg/dL (70-104); GOT 38 U/L (10-34); GPT 49 U/L (10-44); POTASSIUM 5.2 mmol/L (3.5-5.1); SODIUM 143 mmol/L (136-145); TCO2 21 mmol/L (25-35); TOTAL PROTEIN 6.7 g/dL (6.3-8.3)
[2019-09-27] MEDS ORDERED: KAYEXALATE PO ONE (08:10)
--- NOTE | 2019-09-27 08:31 | PROGRESS NOTE ---
DATE: 09/27/2019 SUBJECTIVE: The patient is definitely more alert today. The patient reports feeling very thirsty and definitely less short of breath. He has been restless and placed on restraints and using BiPAP all night long last night. OBJECTIVE: Vital Signs: Temperature 98 degrees, heart rate 96, respiratory rate 18, blood pressure 131/85, O2 saturation 95% on 4 L nasal cannula. General: This is a 59-year-old, male, lying in bed in no acute distress. Cardiovascular: S1, S2 heard. No murmurs, gallops, or rubs. Regular rate and rhythm. Respiratory: Clear bilaterally to auscultation. No work of breathing or using accessory muscles. Abdomen: Soft, nontender to palpation. Bowel sounds present. No organomegaly. Extremities: No clubbing, cyanosis, or edema. Peripheral pulses present in both legs. Neurological: The patient is alert, awake, oriented to place and name. Moves all 4 extremities. LABORATORY DATA: White cell count 8.71, hemoglobin 12.8, hematocrit 40.7, platelets 166,000. ABG shows pH 7.39, with pCO2 of 37, PO2 of 172; that was on BiPAP at FiO2 of 40%. Potassium 5.2, normal renal function, glucose 322. ASSESSMENT AND PLAN: 1. Acute respiratory failure secondary to bibasilar pneumonia. The patient is on broad-spectrum antibiotics. In this case, it is Zyvox and Zosyn. Today is the day #2 for both medications. Considering that his renal function has normalized, I think we will adjust the doses of the Zosyn to 3.375 grams every 6 hours, and will continue with the same doses of Zyvox. 2. Chronic obstructive pulmonary disease exacerbation. Will continue with DuoNeb every 4 hours. 3. Acute kidney injury, most likely secondary to dehydration. That condition is completely resolved. 4. Hyperkalemia. Potassium today is 5.2. Will provide 1 dose of Kayexalate, and will check BMP tomorrow. 5. Metabolic encephalopathy. That condition is resolving. The patient is definitely more alert and awake. 6. Chronic pain syndrome. Oxycodone has been held because of his mental status. Will continue to monitor. 7. Hypertension. Blood pressure has been high overnight, but the blood pressure that we have on file is 131 systolic blood pressure. At this point, will continue with the same management. 8. Tobacco abuse. The patient is going to be given nicotine patch. 9. Diabetes mellitus type 2. Will check hemoglobin A1c. Because of his very high glucose, will start Lantus 15 units twice daily and sliding scale insulin on moderate doses. Will continue to monitor. 10. Disposition. Will continue to monitor this patient here in the intensive care unit. cc: Andrzej Kovacs MD MTDD
[2019-09-27] MEDS: PULMICORT INH SCH ×2 (08:43→19:10)
[2019-09-27] MEDS ORDERED: LEXAPRO PO SCH (09:00)
[2019-09-27] MEDS: ZOSYN 3.375 GM in NS 50 ML IV SCH ×3 (09:00→20:12)
[2019-09-27 09:23] LABS: BANDS 6 % (0-1); LYMPHS 12 % (21-51); MONO 2 % (1-9); SEGS 80 % (42-75)
[2019-09-27] MEDS: LANTUS INSULIN SUBQ SCH ×2 (10:00→20:13)
[2019-09-27] MEDS: MIRALAX PO SCH (10:00)
[2019-09-27] MEDS: TOPROL XL PO SCH (10:00)
[2019-09-27] MEDS: LYRICA PO SCH ×2 (10:00→20:13)
[2019-09-27] MEDS: ASPIRIN EC PO SCH (10:00)
[2019-09-27] MEDS: RANEXA PO SCH ×2 (10:00→20:12)
[2019-09-27] MEDS: LOVENOX SUBQ SCH (10:28)
[2019-09-27] MEDS: ZYVOX 600 MG/D5W 600 MG/300 ML IVPB IV SCH ×2 (10:44→22:08)
[2019-09-27] MEDS: ZOFRAN IV PRN ×2 (11:26→17:05)
[2019-09-27] MEDS: LASIX IV SCH ×2 (12:30→20:12)
[2019-09-27] MEDS: MORPHINE IV PRN ×3 (13:50→20:31)
--- NOTE | 2019-09-27 14:53 | PULMONOLOGY PROGRESS NOTE ---
DATE: 09/27/2019 SUBJECTIVE: The patient is sitting up in the chair. He has no complaints. He is no longer in restraints. He is cooperative at this time. OBJECTIVE: Vital Signs: Blood pressure is 166/89, with a heart rate of 99, respirations are 18, temperature is 98.9 degrees, with O2 saturations 96-99% on 4 L nasal cannula. HEENT: Head is normocephalic, atraumatic. Mucous membranes are moist. Neck is supple with trachea midline. Cardiovascular: Regular rate and rhythm. S1 and S2 are appreciated. No murmurs, rubs, or gallops. Pulmonary: Breath sounds are clear with no increased work of breathing noted. Chest rises and falls symmetrically with respiration. Chest wall is nontender to palpation. Gastrointestinal: Abdomen is soft, nontender, nondistended. Bowel sounds in all 4 quadrants. Extremities: No clubbing, cyanosis, or edema. Peripheral pulses are palpable x4 extremities. Neurologic: He is awake, alert, and oriented. Labs: WBC is 8.7, with hemoglobin 12.8, hematocrit 40.7, and platelets of 166,000. Sodium 143, potassium of 5.2, BUN 30, creatinine 1.1, with glucose of 322. ABGs: PH was 7.39, with pCO2 of 37, PO2 of 172, bicarb of 23.2. This was on BiPAP at 40%, 16/8. Chest x-ray reveals cardiomegaly. ASSESSMENT AND PLAN: 1. Chronic obstructive pulmonary disease acute exacerbation with hypercapnia and hypoxemia. 2. Probable bibasilar pneumonia. 3. Acute kidney injury. This is resolved. 4. Chronic pain syndrome. 5. Chronic maxillary sinusitis. 6. Hypertension. 7. Metabolic encephalopathy. The daughter is present and she states the patient is at his baseline. PLAN: 1. We will continue with supplemental oxygen, monitoring saturations. Continue with bronchodilators and steroids. Lasix 40 mg IV x2 doses. Strict I and O. Continue with incentive spirometer. 2. We will continue to cycle BiPAP and nasal cannula as needed. 3. Plan was discussed with Dr. Kurtz. Dictated by NARGIS Deutsch for Brad Kurtz MD cc: NARGIS Deutsch MD
[2019-09-27] MEDS ORDERED: APRESOLINE IV PRN (17:19)
[2019-09-27] MEDS: NORVASC PO SCH ×2 (17:38→20:13)
[2019-09-27] MEDS: FLOMAX PO SCH (20:12)
[2019-09-28] MEDS: ZOSYN 3.375 GM in NS 50 ML IV SCH ×5 (03:00→20:30)
[2019-09-28] MEDS: DUONEB (A & A) INH SCH ×6 (03:02→23:58)
[2019-09-28 04:34] LABS: ALLEN TEST YES; BE 6.9 mmoll (-3.0-3.0); BLOOD TYPE ARTERIAL; HCO3-(ACT) 30.2 mmoll (20.0-26.0); METHB 1.2 % (0.0-1.5); O2(CT) 18.1 mL/dL (15.0-23.0); O2HB 94.5 % (95.0-99.0); PCO2(98.6) 46 mmHg (35-45); PO2(98.6) 74 mmHg (60-100); SAMPLE BLOOD; SAO2 97.3 % (95.0-100.0); THB 13.6 g/dL (11.5-17.4); pH(98.6) 7.45 (7.35-7.45)
[2019-09-28 04:35] LABS: MODALITY CANNULA
--- NOTE | 2019-09-28 06:38 | Diag Imaging Result Doc PS360 ---
CHEST-PORTABLE - 09/28/2019 INDICATION: abnormal exam COMPARISON: 09/27/2019 FINDINGS: The lungs are normally expanded and clear. Heart size and mediastinal contours are normal. No pneumothorax or pleural effusion. IMPRESSION: Negative exam. Electronically signed by Deniz Brooks 09/28/2019 6:36 AM
[2019-09-28] MEDS: HUMALOG SUBQ SCH ×4 (06:39→20:31)
[2019-09-28 06:53] LABS: MAGNESIUM 1.5 mg/dL (1.5-2.7); PHOSPHORUS 1.9 mg/dL (2.7-4.5)
[2019-09-28 06:55] LABS: ALLEN TEST YES; BE 5.8 mmoll (-3.0-3.0); BLOOD TYPE ARTERIAL; HCO3-(ACT) 29.4 mmoll (20.0-26.0); METHB 1.1 % (0.0-1.5); MODALITY CANNULA; O2(CT) 18.5 mL/dL (15.0-23.0); O2HB 95.9 % (95.0-99.0); PCO2(98.6) 34 mmHg (35-45); PO2(98.6) 88 mmHg (60-100); SAMPLE BLOOD; SAO2 98.7 % (95.0-100.0); THB 13.7 g/dL (11.5-17.4); pH(98.6) 7.53 (7.35-7.45)
--- NOTE | 2019-09-28 07:16 | PROGRESS NOTE ---
DATE: 09/28/2019 SUBJECTIVE: The patient is definitely more alert and awake. He has been using BiPAP last night. He has slept in the chair all night long. No other issues noted as per nursing staff overnight. OBJECTIVE: Vital Signs: Temperature 97.6, heart rate 92, respiratory rate 18, blood pressure 146/76, O2 saturation 99% on 4 L nasal cannula. General: This is a 59-year-old, male, lying in bed in no acute distress. Cardiovascular: S1 and S2 heard. No murmurs, gallops, or rubs. Regular rate and rhythm. Respiratory: Clear bilaterally to auscultation. No work of breathing or using accessory muscles. Abdomen: Soft. Nontender to palpation. Bowel sounds present. No organomegaly. Extremities: No clubbing, cyanosis, or edema. Peripheral pulses present in both legs. Neurological: The patient is alert, awake, oriented to place, name. Moves all 4 extremities. LABORATORY DATA: ABG shows pH 7.45, with pCO2 of 46, PO2 of 74. That was on nasal cannula at 4 L. Rest of the labs, including CBC and BMP are okay. ASSESSMENT AND PLAN: 1. Acute respiratory failure secondary to bibasilar pneumonia. The patient continues to be on Zyvox and Zosyn, day #3 for all medication. Clinically, this patient is better. Actually, he is requiring 4 liters of oxygen by nasal cannula. That is what he requires at home. He reports feeling fine. Not short of breath. Physical examination did not reveal any wheezing, rhonchi, or crackles. At this point, will continue with current management. 2. Chronic obstructive pulmonary disease exacerbation. Will continue with DuoNebs every 4 hours and oxygen supplementation. 3. Acute kidney injury, resolved. 4. Hyperkalemia. Results of labs are still pending. He received yesterday, 1 dose of Kayexalate. 5. Metabolic encephalopathy, resolved. 6. Chronic pain syndrome. Oxycodone has been held since admission because of mental status. At this point, the patient is not complaining of any pain. Will continue to hold. 7. Hypertension. Blood pressure is under control. Will continue with the same management. 8. Tobacco abuse. Patient advised to quit smoking. 9. Diabetes mellitus type 2. Blood sugars are still high. We have started Lantus in this patient. Will continue to monitor. 10. Disposition. I think this patient is much more stable, so will transfer him to a regular floor today. cc: Andrzej Kovacs MD
[2019-09-28 07:19] LABS: AGAP 12; ALB/GLOB RATIO 0.9; ALBUMIN 3.3 g/dL (3.5-5.0); ALKALINE PHOSPHATASE 61 U/L (32-122); BUN 26 mg/dL (8-22); CALCIUM 8.8 mg/dL (8.8-10.2); CHLORIDE 105 mmol/L (98-107); COSMO 304; CREATININE 0.9 mg/dL (0.7-1.2); ESTIMATED GFR > 60; GLUCOSE 291 mg/dL (70-104); GOT 22 U/L (10-34); GPT 39 U/L (10-44); POTASSIUM 3.8 mmol/L (3.5-5.1); SODIUM 145 mmol/L (136-145); TCO2 28 mmol/L (25-35); TOTAL BILIRUBIN 0.77 mg/dL (0.20-1.00); TOTAL PROTEIN 6.8 g/dL (6.3-8.3)
[2019-09-28 07:28] LABS: BASO# 0.01 X1000 (0.0-0.2); BASO% 0.1 % (0.0-0.8); HEMATOCRIT 40.5 % (42.0-52.0); HEMOGLOBIN 12.9 g/dL (14.0-18.0); LYMPH# 0.61 X1000 (1.2-3.4); LYMPH% 8.3 % (20.5-51.1); MCH 30.6 PG (27-31); MCHC 31.9 g/dL (33-37); MONO# 0.25 X1000 (0.11-0.59); MONO% 3.4 % (1.7-9.3); MPV 11.3 FL (7.4-10.4); NEUT# 6.51 X1000 (1.4-6.5); NEUT% 88.2 % (42.2-75.2); PLT 147 X1000 (130-400); RBC 4.22 XMIL (4.7-6.1); RDW 13.2 % (11.5-14.5); WBC 7.38 X1000 (4.8-10.8)
[2019-09-28] MEDS: PULMICORT INH SCH ×2 (08:01→19:24)
[2019-09-28] MEDS: MORPHINE IV PRN ×4 (08:48→23:27)
[2019-09-28] MEDS: SOLU-MEDROL IV SCH ×3 (08:48→16:40)
[2019-09-28] MEDS: RANEXA PO SCH ×2 (08:49→20:32)
[2019-09-28] MEDS: NORVASC PO SCH ×2 (08:49→20:32)
[2019-09-28] MEDS: ASPIRIN EC PO SCH (08:49)
[2019-09-28] MEDS: LANTUS INSULIN SUBQ SCH ×2 (08:49→20:31)
[2019-09-28] MEDS: LYRICA PO SCH ×2 (08:49→20:32)
[2019-09-28] MEDS: TOPROL XL PO SCH (08:49)
[2019-09-28] MEDS: MIRALAX PO SCH (08:50)
[2019-09-28] MEDS: LOVENOX SUBQ SCH (09:36)
[2019-09-28] MEDS ORDERED: NS 250 ML ONE (10:04)
[2019-09-28 10:22] LABS: BANDS 6 % (0-1); LYMPHS 6 % (21-51); MONO 2 % (1-9); SEGS 86 % (42-75)
[2019-09-28 11:12] LABS: INR 1.11; PROTIME 14.4 Seconds (11.0-16.0)
[2019-09-28] MEDS: ZYVOX 600 MG/D5W 600 MG/300 ML IVPB IV SCH ×2 (11:38→21:10)
[2019-09-28] MEDS: FLOMAX PO SCH (20:32)
--- NOTE | 2019-09-28 21:36 | PULMONOLOGY PROGRESS NOTE ---
DATE: 09/28/2019 SUBJECTIVE: The patient is awake and alert. He reports he feels better. He is without specific complaints. OBJECTIVE: Vital Signs: The patient has been afebrile for the last 24 hours. Blood pressure 158/82, heart rate 85, respiratory rate 16, oxygen saturation 90% on 3 L per nasal cannula. HEENT: Pupils are equal and reactive. Oropharynx appears clear with poor dentition. Neck: Supple. Chest: Prolonged expiratory phase with faint wheezing. Cardiac: S1, S2. Abdomen: Soft and obese. Extremities: Trace edema. LABORATORIES: Chest x-ray reveals mild changes at the left base. Arterial blood gas reveals a pH of 7.53, pCO2 of 34, pO2 of 88. IMPRESSION: A 59-year-old with: 1. Chronic obstructive pulmonary disease exacerbation. 2. Acute hypoxemic and acute hypercapnic respiratory failure. 3. Bibasilar pneumonia. 4. Chronic pain syndrome. 5. Nicotine addiction, with ongoing tobacco use. 6. Diabetes mellitus. DISCUSSION: A 59-year-old with problems outlined above. He clinically has improved over his admission. I believe he is a candidate for transfer to the floor. PLAN: 1. Continue oxygen and BiPAP as needed. 2. Continue treatment for chronic obstructive pulmonary disease exacerbation. He is improving. I would decrease his steroids to help control his sugars. 3. Continue to encourage patient to discontinue tobacco use. 4. Okay for transfer to the floor. cc: Brad Kurtz MD
[2019-09-29] MEDS: ZOSYN 3.375 GM in NS 50 ML IV SCH ×4 (02:19→22:18)
[2019-09-29] MEDS: DUONEB (A & A) INH SCH ×6 (04:20→23:26)
[2019-09-29 05:11] LABS: BE 8.5 mmoll (-3.0-3.0); BLOOD TYPE ARTERIAL; HCO3-(ACT) 31.3 mmoll (20.0-26.0); O2(CT) 16.1 mL/dL (15.0-23.0); PCO2(98.6) 38 mmHg (35-45); SAMPLE BLOOD; SAO2 90.8 % (95.0-100.0); pH(98.6) 7.53 (7.35-7.45)
[2019-09-29 05:14] LABS: ALLEN TEST YES; MODALITY CANNULA
[2019-09-29 05:20] LABS: O2HB 88.2 % (95.0-99.0); PO2(98.6) 49 mmHg (60-100)
[2019-09-29] MEDS: HUMALOG SUBQ SCH ×4 (06:11→22:19)
[2019-09-29] MEDS: SOLU-MEDROL IV SCH ×2 (06:11→22:16)
[2019-09-29] MEDS: PULMICORT INH SCH ×2 (07:55→19:49)
--- NOTE | 2019-09-29 08:38 | PROGRESS NOTE ---
DATE: 09/29/2019 SUBJECTIVE: The patient is more alert and awake, not complaining of any shortness of breath. OBJECTIVE: Vital Signs: Temperature 98.5 degrees, heart rate 93, respiratory rate 16, blood pressure 140/72, O2 saturation 93% on 4 L nasal cannula. General: This is a 59-year-old, male, lying in bed in no acute distress. Cardiovascular: S1, S2 heard. No murmurs, gallops, or rubs. Regular rate and rhythm. Respiratory: Clear bilaterally to auscultation with some coarse breath sounds in both pulmonary bases. The patient is not using any accessory muscles or having work of breathing. Abdomen: Soft. Nontender to palpation. Bowel sounds present. No organomegaly. Extremities: No clubbing, cyanosis, or edema. Peripheral pulses present in both legs. Neurological: The patient is alert, awake. Moves all 4 extremities. LABORATORY DATA: White cell count 7.3, hemoglobin 12.9, hematocrit 40.5, platelets 147,000. That CBC was from yesterday. From today, the ABG shows pH 7.53, pCO2 of 38, PO2 of 49, and that was on nasal cannula at 4 L. Rest of labs are pending. ASSESSMENT AND PLAN: 1. Acute respiratory failure secondary to bibasilar pneumonia. Clinically, this patient is not complaining of shortness of breath. He, at home, requires 4 liters of oxygen nasal cannula, which is basically what he is requiring now. He is on Zyvox and Zosyn, day #4 for both medications. Will continue to monitor this patient closely. 2. Chronic obstructive pulmonary disease exacerbation. Will continue with DuoNeb every 4 hours and oxygen supplementation. 3. Acute kidney injury. Completely resolved. 4. Hyperkalemia. The BMP from yesterday shows potassium was back to normal. Labs from today are still pending. 5. Metabolic encephalopathy. Resolved. 6. Chronic pain syndrome. Aware. At this point, the patient is not complaining of any pain. Will continue to monitor. 7. Hypertension. Blood pressure is under control. Will continue with the same management. 8. Tobacco abuse. Patient advised to quit smoking. 9. Diabetes mellitus type 2. Blood sugar has been high because of intravenous steroid. Lantus has been started on this patient. We are weaning off steroids. Will continue to monitor. 10. Disposition. Will continue to monitor this patient closely. ABG shows still hypoxemia. Will continue to monitor. Will start physical therapy today. cc: Andrzej Kovacs MD
[2019-09-29] MEDS: MORPHINE IV PRN ×3 (08:42→22:18)
[2019-09-29] MEDS: NORVASC PO SCH ×2 (08:44→22:17)
[2019-09-29] MEDS: LYRICA PO SCH ×2 (08:44→22:18)
[2019-09-29] MEDS: TOPROL XL PO SCH (08:44)
[2019-09-29] MEDS: LOVENOX SUBQ SCH (08:44)
[2019-09-29] MEDS: ASPIRIN EC PO SCH (08:44)
[2019-09-29] MEDS: RANEXA PO SCH ×2 (08:44→22:18)
[2019-09-29] MEDS: LANTUS INSULIN SUBQ SCH ×2 (08:45→23:00)
[2019-09-29] MEDS: MIRALAX PO SCH (08:45)
[2019-09-29] MEDS: ZYVOX 600 MG/D5W 600 MG/300 ML IVPB IV SCH ×2 (08:49→22:16)
[2019-09-29 09:00] LABS: BASO# 0.04 X1000 (0.0-0.2); BASO% 0.5 % (0.0-0.8); HEMOGLOBIN 12.4 g/dL (14.0-18.0); IMM GRAN# 0.02 X1000 (0.0-0.04); IMM GRAN% 0.2 % (0.0-0.5); LYMPH# 1.42 X1000 (1.2-3.4); LYMPH% 17.7 % (20.5-51.1); MCH 30.3 PG (27-31); MCHC 31.8 g/dL (33-37); MCV 95.4 FL (81-99); MONO# 0.71 X1000 (0.11-0.59); MONO% 8.9 % (1.7-9.3); MPV 10.4 FL (7.4-10.4); NEUT# 5.82 X1000 (1.4-6.5); NEUT% 72.7 % (42.2-75.2); PLT 156 X1000 (130-400); RBC 4.09 XMIL (4.7-6.1); RDW 12.8 % (11.5-14.5); WBC 8.01 X1000 (4.8-10.8)
[2019-09-29 09:20] LABS: AGAP 10; ALBUMIN 3.2 g/dL (3.5-5.0); ALKALINE PHOSPHATASE 56 U/L (32-122); BUN 21 mg/dL (8-22); CALCIUM 8.4 mg/dL (8.8-10.2); CHLORIDE 101 mmol/L (98-107); COSMO 289; CREATININE 0.8 mg/dL (0.7-1.2); ESTIMATED GFR > 60; GLUCOSE 185 mg/dL (70-104); GOT 35 U/L (10-34); GPT 36 U/L (10-44); POTASSIUM 3.6 mmol/L (3.5-5.1); SODIUM 141 mmol/L (136-145); TCO2 30 mmol/L (25-35); TOTAL BILIRUBIN 0.81 mg/dL (0.20-1.00); TOTAL PROTEIN 6.3 g/dL (6.3-8.3)
[2019-09-29 11:06] LABS: PCO2(98.6) 61 mmHg (35-45); pH(98.6) 7.16 (7.35-7.45)
--- NOTE | 2019-09-29 21:46 | PULMONOLOGY PROGRESS NOTE ---
DATE: 09/29/2019 SUBJECTIVE: The patient is awake, alert, and conversant. He reports he feels better. He is not happy with a pureed diet. OBJECTIVE: Vital Signs: The patient has been afebrile for the last 24 hours. Blood pressure 140/73, heart rate 78, respiratory rate 14, oxygen saturation 96% on 4 L per nasal cannula. HEENT: Pupils are equal and reactive. Oropharynx appears clear. Neck: Supple. Chest: Reveals prolonged expiratory phase. He has better air flow with some decrease in wheezing. Cardiac: S1, S2. Abdomen: Obese and soft. Extremities: Without edema. IMPRESSION: A 59-year-old with: 1. Chronic obstructive pulmonary disease exacerbation. 2. Hypoxemic and hypercapnic respiratory failure. 3. Chronic pain syndrome. 4. Diabetes mellitus. 5. Nicotine addiction, with ongoing tobacco use. 6. Bilateral pneumonia. PLAN: 1. Continue antibiotics. 2. Continue to educate about the importance of smoking cessation. 3. Continue oxygen and BiPAP p.r.n. 4. Followup chest x-ray tomorrow morning. cc: Brad Kurtz MD
[2019-09-29] MEDS: FLOMAX PO SCH (22:18)
[2019-09-30] MEDS: ZOSYN 3.375 GM in NS 50 ML IV SCH ×2 (02:40→09:13)
[2019-09-30] MEDS: DUONEB (A & A) INH SCH ×3 (03:32→11:51)
[2019-09-30 05:11] LABS: ALLEN TEST YES; BE 7.9 mmoll (-3.0-3.0); BLOOD TYPE ARTERIAL; METHB 1.1 % (0.0-1.5); O2(CT) 15.4 mL/dL (15.0-23.0); O2HB 93.4 % (95.0-99.0); PCO2(98.6) 49 mmHg (35-45); PO2(98.6) 72 mmHg (60-100); SAMPLE BLOOD; SAO2 96.8 % (95.0-100.0); THB 11.7 g/dL (11.5-17.4); pH(98.6) 7.44 (7.35-7.45)
[2019-09-30 05:13] LABS: MODALITY CANNULA
[2019-09-30] MEDS: HUMALOG SUBQ SCH (06:19)
[2019-09-30] MEDS: PULMICORT INH SCH (08:24)
--- NOTE | 2019-09-30 08:58 | Diag Imaging Result Doc PS360 ---
EXAM: CHEST-2 VIEWS 09/30/2019 HISTORY: abnormal exam TECHNIQUE: PA and lateral chest COMMENT: There is blunting of the left costophrenic angle and platelike opacity over the lateral left lower lobe. Some of this was present on the previous examination of 09/28/2019 but not on 09/27/2019. There is a PICC line on the right with its tip in the superior vena cava. IMPRESSION: Left lower lobe atelectasis plus minus pleural effusion. Electronically signed by Stan Garcia 09/30/2019 8:56 AM
[2019-09-30] MEDS: ASPIRIN EC PO SCH (09:13)
[2019-09-30] MEDS: LOVENOX SUBQ SCH (09:13)
[2019-09-30] MEDS: NORVASC PO SCH (09:13)
[2019-09-30] MEDS: LYRICA PO SCH (09:13)
[2019-09-30] MEDS: RANEXA PO SCH (09:13)
[2019-09-30] MEDS: TOPROL XL PO SCH (09:13)
[2019-09-30] MEDS: MORPHINE IV PRN (09:14)
[2019-09-30] MEDS: LANTUS INSULIN SUBQ SCH (09:15)
[2019-09-30] MEDS: MIRALAX PO SCH (09:15)
[2019-09-30] MEDS: ZYVOX 600 MG/D5W 600 MG/300 ML IVPB IV SCH (09:21)
[2019-09-30] MEDS: SOLU-MEDROL IV SCH (09:25)
[2019-09-30 10:23] LABS: BASO# 0.03 X1000 (0.0-0.2); BASO% 0.5 % (0.0-0.8); HEMATOCRIT 38.3 % (42.0-52.0); HEMOGLOBIN 12.2 g/dL (14.0-18.0); IMM GRAN# 0.03 X1000 (0.0-0.04); IMM GRAN% 0.5 % (0.0-0.5); LYMPH# 0.99 X1000 (1.2-3.4); MCHC 31.9 g/dL (33-37); MCV 94.3 FL (81-99); MONO# 0.37 X1000 (0.11-0.59); MONO% 5.6 % (1.7-9.3); MPV 10.5 FL (7.4-10.4); NEUT% 78.4 % (42.2-75.2); PLT 137 X1000 (130-400); RBC 4.06 XMIL (4.7-6.1); RDW 12.5 % (11.5-14.5); WBC 6.62 X1000 (4.8-10.8)
[2019-09-30 11:42] LABS: AGAP 11; ALKALINE PHOSPHATASE 53 U/L (32-122); BUN 17 mg/dL (8-22); CALCIUM 8.5 mg/dL (8.8-10.2); CHLORIDE 99 mmol/L (98-107); COSMO 289; CREATININE 0.8 mg/dL (0.7-1.2); ESTIMATED GFR > 60; GLUCOSE 285 mg/dL (70-104); GOT 62 U/L (10-34); GPT 68 U/L (10-44); POTASSIUM 3.5 mmol/L (3.5-5.1); SODIUM 139 mmol/L (136-145); TCO2 29 mmol/L (25-35)
[2019-09-30 12:02] VITALS: BP 151/78
--- NOTE | 2019-10-01 15:04 | DISCHARGE SUMMARY ---
ADMISSION DATE: 09/26/2019 DISCHARGE DATE: 09/30/2019 DISCHARGE DIAGNOSES: 1. Bibasilar pneumonia. 2. Chronic obstructive pulmonary disease exacerbation. 3. Acute kidney injury improved. 4. Hyperkalemia resolved. 5. Chronic pain syndrome. 6. Metabolic acidosis with respiratory acidosis. 7. History of coronary artery disease. 8. Hypertension. 9. Tobacco abuse 10. Diabetes mellitus type 2.. CONSULTATIONS: 1. Dr. Kurtz from Pulmonary. 2. Dr. Choi from Urology. PROCEDURES: 1. Chest x-ray done on admission showed no evidence of acute disease. 2. Chest, abdomen, and pelvis CT showed bibasilar atelectasis versus fibrosis with stone in the left ureteropelvic junction without evidence of significant obstructive change. 3. Mild constipation and diverticulosis coli. HOSPITAL COURSE: In brief, this is a 59-year-old male with past medical history of COPD, hypertension and diabetes who apparently started having some altered mental status. He has history of chronic pain syndrome. He has been on Percocet. He has been given Narcan but it did not affect him. He was found to have a CO2 retention with acidosis and hypoxia, that is the reason why he was sent to the intensive care unit. After we placed him on restraints, his CO2 started to improve dramatically. Patient was more alert and awake. Patient's oxygen needs were getting better. He was requiring 4 L of oxygen by nasal cannula which is the same amount that he requires at home. He was on strong antibiotics. We were able to switch to oral. On admission, white cell count was elevated but at discharge he was completely back to normal. Renal function recovered completely. Blood sugar has been elevated some so he is going to be discharged in stable condition. DISCHARGE PHYSICAL EXAMINATION: Vital Signs: Temperature 98.1 degrees, heart rate 89 respiratory rate 24, blood pressure 151/78, and O2 saturation 95% on 4 L nasal cannula. General: This is a chronically ill-appearing 59-year-old, male lying in bed in no acute distress. Cardiovascular: S1, S2 heard. No murmurs, gallops, or rubs. Regular rate and rhythm. Respiratory: Minimal coarse breath sounds noted in both pulmonary bases. Patient not using any accessory muscles or having work of breathing. Abdomen: Soft. Nontender to palpation. Bowel sounds present. No organomegaly. Extremities: No clubbing, cyanosis, or edema. Peripheral pulses present in both legs. Neurological: The patient alert and oriented x3. Moves all 4 extremities. DISCHARGE DISPOSITION: Home to self-care. FOLLOW UP: With his primary care physician in a week. MEDICATIONS: 1. Flomax 0.4 mg 1 tablet p.o. at bedtime. 2. Levofloxacin 750 mg 1 tablet p.o. daily for 10 days. 3. Lantus 15 units subcutaneous twice daily. 4. Lyrica 100 mg 1 tablet p.o. b.i.d. 5. Albuterol 1 inhalation every 4 hours as needed for shortness of breath. 6. Aspirin 81 mg 1 tablet p.o. daily. 7. Lexapro 10 mg, 1 tablet p.o. daily. 8. Chantix 1 mg 1 tablet p.o. b.i.d. 9. MiraLAX 1 pack p.o. daily. 10. Percocet 10 mg/325 mg 1 tablet p.o. twice daily as needed for pain. 11. Lisinopril/hydrochlorothiazide 20/12.5 1 tablet p.o. daily. 12. Losartan 50 mg 1 tablet p.o. daily. 13. Metformin 1 tablet p.o. b.i.d. TIME SPENT: Time discharging this patient 40 minutes. cc: MD NABILA Rivas
== END 2019-09-30 13:35 | disposition home or self-care (01) | DRG 189 ==
LOC: P.ED 19:51 → ICU 09-26 03:58 → SUATTDRO 09-26 03:58 → 3N 09-28 23:01
PROVIDERS: ATTEND Internal Medicine